=== PATIENT | female | born 1950 | race Caucasian/White ===

== ENCOUNTER 2017-02-28 23:02 | Inpatient (IN) | payer MEDICARE ==
[~2017-02-28] VITALS: Ht 152.4 cm; Wt 43.0 kg
[~2017-02-28 23:02] MED LIST: CITA20TA4 PO; FIORIC PO; GABA100C4 PO; ZOFR4TAB3 SL
[2017-02-28 23:16] VITALS: BP 134/63; PULSE 80; RESP 13; TEMP 98.4; O2SAT 94
[2017-03-01] VITALS (10 sets, daily range): BP systolic 112–148; BP diastolic 51–73; PULSE 68–88; RESP 12–20; TEMP 98.4–98.8; O2SAT 92–99
--- NOTE | 2017-03-01 00:01 | PD ---
HPI Chief Complaint: Injury Time Seen by Provider: 23:31 Travel History International Travel<30 days: No Contact w/Intl Traveler<30days: No Traveled to known affect area: No History of Present Illness HPI 67yo F was found by neighbor on her floor after she fell yesterday night. Neighbor said she lives with a roommate and does not know the relationship of the roommate but he was out of town. Pt does not remember why she fell and she was just walking. Said she crawled and was unable to get up. Denies any fever , chest pain, sob, n/v, abdominal pain, focal weakness or numbness. Pt is AAOx2 and neighbor said she seems a little out of it. Cant really describe it. PFSH Past Medical History Arthritis: Yes Diminished Hearing: No Immunizations Current: Yes Migraines: Yes (TAKES FIORICET) Ovarian Cysts: Yes (CYCST IN THE UTERUS ) Dilation and Curettage (D&C): Yes Past Surgical History Hysterectomy: Yes Mastectomy: Yes (BILATERAL ) Tonsillectomy: Yes Other Surgery: Yes (BLADDER LIFT) Social History Alcohol Use: No Tobacco Use: Yes (1 PPD ) Substance Use: No Allergies-Medications (Allergen,Severity, Reaction): Coded Allergies: aspirin (Unverified Adverse Reaction, Severe, gi bleed, 01/02/17) morphine (Unverified Adverse Reaction, Intermediate, hypotension , 01/02/17 ) Reported Meds & Prescriptions Reported Meds & Active Scripts Active Zofran ODT (Ondansetron HCl) 4 Mg Tab 4 Mg SL Q6H PRN FOR NAUSEA/VOMITING Fioricet Tab (Acetaminophen/Butalbital/Caffeine) 1 Tab 1 Tab PO Q6H PRN Reported Ibuprofen 800 Mg Tab 800 Mg PO TID PRN Zofran Odt (Ondansetron Odt) 4 Mg Tab 4 Mg SL Q8HR PRN Citalopram (Citalopram Hydrobromide) 40 Mg Tab 40 Mg PO DAILY Gabapentin 100 Mg Cap 100 Mg PO BID Trazodone (Trazodone HCl) 100 Mg Tablet 100 Mg PO HS Gabapentin 100 Mg Cap Unknown Dose PO HS Zofran ODT (Ondansetron HCl) 4 Mg Tab 4 Mg SL Q6H PRN FOR NAUSEA/VOMITING Fioricet Tab (Acetaminophen/Butalbital/Caffeine) 1 Tab Tab 1 Tab PO Q4H PRN Citalopram Hydrobromide 20 Mg Tab 10 Mg PO DAILY Review of Systems Except as stated in HPI: all other systems reviewed are Neg Physical Exam Narrative GENERAL: 67yo F in moderate distress. SKIN: Focused skin assessment warm/dry. HEAD: Atraumatic. Normocephalic. EYES: Pupils equal and round at 3mm bilaterally.. No scleral icterus. No injection or drainage. ENT: No nasal bleeding or discharge. Mucous membranes pink and moist. NECK: Trachea midline. No JVD. CARDIOVASCULAR: Regular rate and rhythm. No murmur appreciated. RESPIRATORY: No accessory muscle use. Clear to auscultation. Breath sounds equal bilaterally. GASTROINTESTINAL: Abdomen soft, non-tender, nondistended. MUSCULOSKELETAL: RLE: DP2+. +Deformity in right ankle. NEUROLOGICAL: Awake and alert. No obvious cranial nerve deficits. Motor grossly within normal limits. Normal speech. AAOx2. Data Data Last Documented VS Vital Signs Date Time Temp Pulse Resp B/P (MAP) Pulse Ox O2 Delivery O2 Flow Rate FiO2 03/01/17 04:47 16 03/01/17 04:30 73 138/65 (89) 97 Nasal Cannula 2.00 02/28/17 23:16 98.4 Orders Orders Tibia/Fibula (Ap/Lat) (02/28/17 ) Ct Brain W/O Iv Contrast(Rout) (02/28/17 ) Ct Cerv Spine W/O Contrast (02/28/17 ) Complete Blood Count With Diff (02/28/17 23:45) Prothrombin Time / Inr (Pt) (02/28/17 23:45) Act Partial Throm Time (Ptt) (02/28/17 23:45) Electrocardiogram (02/28/17 ) Troponin I (02/28/17 23:46) Creatine Kinase (Cpk) (02/28/17 23:46) Foot, Limited (2vws) (03/01/17 ) Splint Or Brace Apply/Monitor (03/01/17 01:00) Basic Metabolic Panel (Bmp) (03/01/17 00:55) CKMB (03/01/17 00:55) CKMB% (03/01/17 00:55) Sodium Chlor 0.9% 1000 Ml Inj (Ns 1000 M (03/01/17 02:45) Morphine Inj (Morphine Inj) (03/01/17 02:45) Admit To Inpatient (03/01/17 ) Vital Signs (Adult) Q4H (03/01/17 02:51) Activity Bed Rest (03/01/17 02:51) Insurance Office Manager / Telemetry .CONTINUOUS (03/01/17 02:51) Sodium Chlor 0.9% 1000 Ml Inj (Ns 1000 M (03/01/17 02:51) Sodium Chloride 0.9% Flush (Ns Flush) (03/01/17 03:00) Sodium Chloride 0.9% Flush (Ns Flush) (03/01/17 09:00) Ondansetron Inj (Zofran Inj) (03/01/17 03:00) Comprehensive Metabolic Panel (03/02/17 06:00) Complete Blood Count With Diff (03/02/17 06:00) Scd Bilateral/Knee High KAYCE.BID (03/01/17 02:51) Hydromorphone Pf Inj (Dilaudid Pf Inj) (03/01/17 03:00) Hydromorphone Pf Inj (Dilaudid Pf Inj) (03/01/17 03:00) Naloxone Inj (Narcan Inj) (03/01/17 03:00) Docusate Sodium-Senna (Lynne-Colace) (03/01/17 09:00) Magnesium Hydroxide Liq (Milk Of Magnesi (03/01/17 03:00) Inpatient Certification (03/01/17 ) Citalopram (Celexa) (03/01/17 09:00) Admit Order (Ed Use Only) (03/01/17 04:50) Labs Laboratory Tests Test 03/01/17 00:55 White Blood Count 7.8 TH/MM3 Red Blood Count 3.36 MIL/MM3 Hemoglobin 11.3 GM/DL Hematocrit 33.1 % Mean Corpuscular Volume 98.4 FL Mean Corpuscular Hemoglobin 33.5 PG Mean Corpuscular Hemoglobin Concent 34.0 % Red Cell Distribution Width 13.8 % Platelet Count 208 TH/MM3 Mean Platelet Volume 7.2 FL Neutrophils (%) (Auto) 66.2 % Lymphocytes (%) (Auto) 25.5 % Monocytes (%) (Auto) 7.3 % Eosinophils (%) (Auto) 0.1 % Basophils (%) (Auto) 0.9 % Neutrophils # (Auto) 5.1 TH/MM3 Lymphocytes # (Auto) 2.0 TH/MM3 Monocytes # (Auto) 0.6 TH/MM3 Eosinophils # (Auto) 0.0 TH/MM3 Basophils # (Auto) 0.1 TH/MM3 CBC Comment DIFF FINAL Differential Comment Prothrombin Time 11.3 SEC Prothromb Time International Ratio 1.0 RATIO Activated Partial Thromboplast Time 24.4 SEC Blood Urea Nitrogen 16 MG/DL Creatinine 0.80 MG/DL Random Glucose 91 MG/DL Calcium Level 7.8 MG/DL Sodium Level 143 MEQ/L Potassium Level 3.4 MEQ/L Chloride Level 113 MEQ/L Carbon Dioxide Level 23.1 MEQ/L Anion Gap 7 MEQ/L Estimat Glomerular Filtration Rate 71 ML/MIN Total Creatine Kinase 1046 U/L Creatine Kinase MB 8.0 NG/ML Creatine Kinase MB % 0.8 % Troponin I LESS THAN 0.02 NG/ML MDM Medical Decision Making Medical Screen Exam Complete: Yes Emergency Medical Condition: Yes Differential Diagnosis Fracture vs. dislocation vs. contusion vs. rhabdomyolysis vs. syncope Narrative Course 67yo F with right lower leg pain s/p fall over 24 hours ago. States she does not remember why she fell. She is AAOx2. Labs reviewed, no leukocytosis. Troponin negative. CPK elevated at 1046. Pt given NS IVF. Pt has morphine listed as allergy but states she had it before. Morphine 2mg IV given. Xray right foot negative. CT cspine showed no acute findings. CT brain negative. Xray right tib/fib showed spiral fracture. Right leg placed in splint. I discussed with Mr. Isaiah Black who lives with patient and is her career technical education teacher at [phone]. States he is currently in [place]. Pt also has a daughter Noni Serna who lives in [place] and her number is . Discussed with Dr. Enriquez and accepted to his service. Will need ortho consult and medical management. Diagnosis Primary Impression: Fracture of right tibia and fibula Qualified Codes: S82.201A - Unspecified fracture of shaft of right tibia, initial encounter for closed fracture; S82.401A - Unspecified fracture of shaft of right fibula, initial encounter for closed fracture Additional Impression: Rhabdomyolysis Qualified Codes: T79.6XXA - Traumatic ischemia of muscle, initial encounter Admitting Information Admitting Physician Requests: Admit Kayla Ghosh DO Mar 01, 2017 00:01
--- NOTE | 2017-03-01 00:44 | RADRPT ---
EXAM DATE/TIME: 03/01/2017 00:18 [facility] COMPARISON: No previous studies available for comparison. INDICATIONS : Trauma, fall. RADIATION DOSE: 56.35 CTDIvol (mGy) MEDICAL HISTORY : Carcinoma, breast. Migraines SURGICAL HISTORY : None. ENCOUNTER: Initial ACUITY: 1 day PAIN SCALE: 0/10 LOCATION: cranial TECHNIQUE: Multiple contiguous axial images were obtained of the head. Using automated exposure control and adj ustment of the mA and/or kV according to patient size, radiation dose was kept as low as reasonably a chievable to obtain optimal diagnostic quality images. DICOM format image data is available electro nically for review and comparison. FINDINGS: CEREBRUM: The ventricles are normal for age. No evidence of midline shift, mass lesion, hemorrhage or acute in farction. No extra-axial fluid collections are seen. POSTERIOR FOSSA: The cerebellum and brainstem are intact. The 4th ventricle is midline. The cerebellopontine angle i s unremarkable. EXTRACRANIAL: The visualized portion of the orbits is intact. SKULL: The calvaria is intact. No evidence of skull fracture. CONCLUSION: Normal examination for a patient of this age. No significant change has occurred. Philip Goldberg MD on March 01, 2017 at 0:38 Board Certified Radiologist. This report was verified electronically.
--- NOTE | 2017-03-01 00:45 | RADRPT ---
EXAM DATE/TIME: 03/01/2017 00:08 [facility] COMPARISON: No previous studies available for comparison. INDICATIONS : Pain due to fall. MEDICAL HISTORY : Carcinoma, breast. Migraines SURGICAL HISTORY : Mastectomy, bilateral. Hysterectomy.Bladder lift. ENCOUNTER: Initial ACUITY: 1 day PAIN SCORE: 7/10 LOCATION: Right foot FINDINGS: No acute fracture identified within the right foot. Bones are osteopenic. Incidentally noted fracture s of the right tibia and fibula. CONCLUSION: 1. No acute fracture within the right foot. There are fractures of the distal right tibia and fibula. Philip Goldberg MD on March 01, 2017 at 0:43 Board Certified Radiologist. This report was verified electronically.
--- NOTE | 2017-03-01 00:47 | RADRPT ---
EXAM DATE/TIME: 02/28/2017 23:51 [facility] COMPARISON: No previous studies available for comparison. INDICATIONS : Pain due to fall. MEDICAL HISTORY : Carcinoma, breast. Migraines. SURGICAL HISTORY : Mastectomy, bilateral. Hysterectomy.Bladder lift. ENCOUNTER: Initial ACUITY: 1 day PAIN SCORE: 7/10 LOCATION: Right tibia/fibula FINDINGS: There is a mildly displaced spiral fracture of the distal tibia and fibula. Is also a proximal fibula r fracture with mild displacement. No dislocation. CONCLUSION: 1. Spiral fracture distal tibia with mild displacement. Also mildly displaced fractures proximal and distal fibula. Philip Goldberg MD on March 01, 2017 at 0:45 Board Certified Radiologist. This report was verified electronically.
--- NOTE | 2017-03-01 00:49 | RADRPT ---
EXAM DATE/TIME: 03/01/2017 00:18 [facility] COMPARISON: No previous studies available for comparison. INDICATIONS : Trauma, fall. RADIATION DOSE: 37.10 CTDIvol (mGy) MEDICAL HISTORY : Carcinoma, breast. Migraines. SURGICAL HISTORY : None. ENCOUNTER: Initial ACUITY: 1 day PAIN SCALE: 0/10 LOCATION: neck TECHNIQUE: Volumetric scanning of the cervical spine was performed. Multiplanar reconstructions in the sagittal, coronal and oblique axial planes were performed. Using automated exposure control and adjustment o f the mA and/or kV according to patient size, radiation dose was kept as low as reasonably achievable to obtain optimal diagnostic quality images. DICOM format image data is available electronically f or review and comparison. FINDINGS: There is moderate degenerative disc disease and facet arthropathy. No acute fracture spondylolisthesi s. No significant canal stenosis. No prevertebral soft tissue swelling. CONCLUSION: 1. Moderate degenerative change. No acute findings. Philip Goldberg MD on March 01, 2017 at 0:46 Board Certified Radiologist. This report was verified electronically.
[2017-03-01 01:23] LABS: AUTOMATED NEUTROPHIL # 5.1 TH/MM3 (1.8-7.7); BASOPHIL # 0.1 TH/MM3 (0-0.2); BASOPHIL % 0.9 % (0.0-2.0); EOSINOPHIL % 0.1 % (0.0-4.0); HEMATOCRIT 33.1 % (35.0-46.0); HEMO FLAGS DIFF FINAL; LYMPH % 25.5 % (9.0-44.0); MEAN CELL VOLUME 98.4 FL (80.0-100.0); MEAN CORPUSCULAR HEMOGLOBIN 33.5 PG (27.0-34.0); MONO % 7.3 % (0.0-8.0); NEUT % 66.2 % (16.0-70.0); PLATELET COUNT 208 TH/MM3 (150-450); RED BLOOD COUNT 3.36 MIL/MM3 (4.00-5.30); RED CELL DISTRIBUTION WIDTH 13.8 % (11.6-17.2); WHITE BLOOD COUNT 7.8 TH/MM3 (4.0-11.0)
[2017-03-01 01:34] LABS: APTT (PATIENT) 24.4 SEC (24.3-30.1); PROTHROMBIN TIME - PATIENT 11.3 SEC (9.8-11.6)
[2017-03-01 01:48] LABS: ANION GAP 7 MEQ/L (5-15); BICARBONATE 23.1 MEQ/L (21.0-32.0); BLOOD UREA NITROGEN 16 MG/DL (7-18); CHLORIDE 113 MEQ/L (98-107); GLOMERULAR FILTRATION RATE 71 ML/MIN (>89); POTASSIUM 3.4 MEQ/L (3.5-5.1); SODIUM (NA) 143 MEQ/L (136-145)
[2017-03-01 02:02] LABS: CREATINE KINASE 1046 U/L (26-192)
[2017-03-01] MEDS ORDERED: MORPHINE SULFATE 2 MG/ML INJ IV PUSH ONE (02:45)
[2017-03-01] MEDS ORDERED: SODIUM CHLOR 0.9% 1000 ML INJ 1,000 ML IV ONE (02:45)
[2017-03-01] MEDS ORDERED: NALOXONE HCL 0.4 MG/ML AMP IV PUSH PRN (03:00)
[2017-03-01] MEDS ORDERED: MAGNESIUM HYDROXIDE SUSP 30 ML CUP PO PRN (03:00)
[2017-03-01] MEDS ORDERED: HYDROmorphone HCL PF 1 MG/ML VIAL IV PUSH PRN (03:00)
[2017-03-01] MEDS ORDERED: TRAZ100T6 PO (03:05)
[2017-03-01] MEDS ORDERED: ZOFR4TAB3 SL (03:05)
[2017-03-01] MEDS ORDERED: CITA40TA4 PO (03:05)
[2017-03-01] MEDS ORDERED: IBUP800T23 PO (03:05)
[2017-03-01] MEDS ORDERED: GABA100C4 PO (03:05)
[2017-03-01] MEDS: SODIUM CHLOR 0.9% 1000 ML INJ 1,000 ML IV SCH ×3 (04:15→20:24)
[2017-03-01] MEDS: SODIUM CHLORIDE 0.9% FLUSH 10 ML FLUSH IV FLUSH PRN (04:16)
--- NOTE | 2017-03-01 04:54 | HHI.HP ---
[facility] Service [facility] Primary Care Physician Moris Kiser M.D. Admission Diagnosis Diagnoses: (1) Fracture of right tibia and fibula Diagnosis: Principal (2) Rhabdomyolysis Diagnosis: Principal Travel History International Travel<30 Days: No Contact w/Intl Traveler <30 Da: No Traveled to Known Affected Are: No History of Present Illness Mrs. Serna is a 67-year-old female. She tripped and fell at home. This has resulted in a spiral fracture of her right tibia-fibula fibula. She also has some rhabdomyolysis. She was found on the floor. She may have been on the floor about 24 hours. No other complaints. When seeing her pain is well- controlled. She has a prior fall with a right humerus fracture. Review of Systems Constitutional: DENIES: Fatigue, Fever, Chills, Night Sweats Eyes: DENIES: Blurred vision, Diplopia, Eye inflammation, Eye pain Ears, nose, mouth, throat: DENIES: Tinnitus, Hearing loss, Vertigo Respiratory: DENIES: Cough, Wheezing, Hemoptysis, Shortness of breath Cardiovascular: DENIES: Chest pain, Palpitations, Syncope Gastrointestinal: DENIES: Abdominal pain, Black stools, Bloody stools Musculoskeletal: COMPLAINS OF: Joint pain, Muscle aches, Stiffness, Joint Swelling Integumentary: DENIES: Abnormal pigmentation, Pruritus, Rash Hematologic/lymphatic: DENIES: Bruising, Lymphadenopathy Immunologic/allergic: DENIES: Eczema, Urticaria Neurologic: DENIES: Abnormal gait, Headache, Paresthesias Psychiatric: DENIES: Anxiety, Confusion, Hallucinations Past Family Social History Past Medical History Breast cancer Osteoarthritis Headache Ovarian cysts History of right humerus fracture Past Surgical History Bilateral mastectomy Hysterectomy Bladder surgery Tonsillectomy Reported Medications Reported Meds & Active Scripts Active Zofran ODT (Ondansetron HCl) 4 Mg Tab 4 Mg SL Q6H PRN FOR NAUSEA/VOMITING Fioricet Tab (Acetaminophen/Butalbital/Caffeine) 1 Tab 1 Tab PO Q6H PRN Reported Ibuprofen 800 Mg Tab 800 Mg PO TID PRN Zofran Odt (Ondansetron Odt) 4 Mg Tab 4 Mg SL Q8HR PRN Citalopram (Citalopram Hydrobromide) 40 Mg Tab 40 Mg PO DAILY Gabapentin 100 Mg Cap 100 Mg PO BID Trazodone (Trazodone HCl) 100 Mg Tablet 100 Mg PO HS Gabapentin 100 Mg Cap Unknown Dose PO HS Zofran ODT (Ondansetron HCl) 4 Mg Tab 4 Mg SL Q6H PRN FOR NAUSEA/VOMITING Fioricet Tab (Acetaminophen/Butalbital/Caffeine) 1 Tab Tab 1 Tab PO Q4H PRN Citalopram Hydrobromide 20 Mg Tab 10 Mg PO DAILY Allergies: Coded Allergies: aspirin (Unverified Adverse Reaction, Severe, gi bleed, 01/02/17) morphine (Unverified Adverse Reaction, Intermediate, hypotension , 01/02/17 ) Active Ordered Medications Administered Medications Medications (Trade) Dose Ordered Sig/[place] Route PRN Reason Start Time Stop Time Status Last Admin Dose Admin Sodium Chloride 1,000 ml @ 100 mls/hr Q10H IV 03/01/17 02:51 03/01/17 04:15 Sodium Chloride (NS Flush) 2 ml UNSCH PRN IV FLUSH FLUSH AFTER USING IV ACCESS 03/01/17 03:00 03/01/17 04:16 Hydromorphone HCl (Dilaudid Pf Inj) 0.5 mg Q3H PRN IV PUSH Pain 3-5; if unable to take PO 03/01/17 03:00 03/01/17 04:17 Family History Breast cancer in mother Parkinson's disease in father Social History 1ppd smoking habit No Alcohol abuse No illicit drug use Physical Exam Vital Signs Vital Signs Date Time Temp Pulse Resp B/P (MAP) Pulse Ox O2 Delivery O2 Flow Rate FiO2 03/01/17 02:00 76 20 125/60 (81) 96 Nasal Cannula 2.00 03/01/17 01:00 84 16 125/60 (81) 98 Nasal Cannula 2.00 02/28/17 23:20 94 Nasal Cannula 2.00 02/28/17 23:16 98.4 80 13 134/63 (86) 94 Physical Exam GENERAL: NAD, A&Ox3 HEAD: Normocephalic. NECK: Supple, trachea midline. No lymphadenopathy. EYES: No scleral icterus. No injection or drainage. CARDIOVASCULAR: Regular rate and rhythm without murmurs, gallops, or rubs. RESPIRATORY: Breath sounds equal bilaterally. No accessory muscle use. GASTROINTESTINAL: Abdomen soft, non-tender, nondistended. MUSCULOSKELETAL: No cyanosis, or edema. Right lower extremity bandaged/splinted SKIN: Warm and dry. NEURO: No focal neurological deficitis. Laboratory Laboratory Tests Test 03/01/17 00:55 White Blood Count 7.8 Red Blood Count 3.36 Hemoglobin 11.3 Hematocrit 33.1 Mean Corpuscular Volume 98.4 Mean Corpuscular Hemoglobin 33.5 Mean Corpuscular Hemoglobin Concent 34.0 Red Cell Distribution Width 13.8 Platelet Count 208 Mean Platelet Volume 7.2 Neutrophils (%) (Auto) 66.2 Lymphocytes (%) (Auto) 25.5 Monocytes (%) (Auto) 7.3 Eosinophils (%) (Auto) 0.1 Basophils (%) (Auto) 0.9 Neutrophils # (Auto) 5.1 Lymphocytes # (Auto) 2.0 Monocytes # (Auto) 0.6 Eosinophils # (Auto) 0.0 Basophils # (Auto) 0.1 CBC Comment DIFF FINAL Differential Comment Prothrombin Time 11.3 Prothromb Time International Ratio 1.0 Activated Partial Thromboplast Time 24.4 Blood Urea Nitrogen 16 Creatinine 0.80 Random Glucose 91 Calcium Level 7.8 Sodium Level 143 Potassium Level 3.4 Chloride Level 113 Carbon Dioxide Level 23.1 Anion Gap 7 Estimat Glomerular Filtration Rate 71 Total Creatine Kinase 1046 Creatine Kinase MB 8.0 Creatine Kinase MB % 0.8 Troponin I LESS THAN 0.02 Result Diagram: 03/01/17 0055 03/01/17 0055 Caprini VTE Risk Assessment Caprini VTE Risk Assessment: Mod/High Risk (score >= 2) Caprini Risk Assessment Model Point Value = 1 Point Value = 2 Point Value = 3 Point Value = 5 Age 41-60 Minor surgery BMI > 25 kg/m2 Swollen legs Varicose veins or History of unexplained or recurrent spontaneous Oral contraceptives or hormone replacement Sepsis (< 1 month) Serious lung disease, including pneumonia (< 1 month) Abnormal pulmonary function Acute myocardial infarction Congestive heart failure (< 1 month) History of inflammatory bowel disease Medical patient at bed rest Age 61-74 Arthroscopic surgery Major open surgery (> 45 min) Laparoscopic surgery (> 45 min) Malignancy Confined to bed (> 72 hours) Immobilizing plaster cast Central venous access Age >= 75 History of VTE Family history of VTE Factor V Leiden Prothrombin [id number] Lupus anticoagulant Anticardiolipin antibodies Elevated serum homocysteine Heparin-induced thrombocytopenia Other congenital or acquired thrombophilia Stroke (< 1 month) Elective arthroplasty Hip, pelvis, or leg fracture Acute spinal cord injury (< 1 month) Prophylaxis Regimen Total Risk Factor Score Risk Level Prophylaxis Regimen 0-1 Low Early ambulation 2 Moderate Order ONE of the following: *Sequential Compression Device (SCD) *Heparin 5000 units SQ BID 3-4 Higher Order ONE of the following medications: *Heparin 5000 units SQ TID *Enoxaparin/Lovenox 40 mg SQ daily (WT < 150 kg, CrCl > 30 mL/min) *Enoxaparin/Lovenox 30 mg SQ daily (WT < 150 kg, CrCl > 10-29 mL/min) *Enoxaparin/Lovenox 30 mg SQ BID (WT < 150 kg, CrCl > 30 mL/min) AND/OR *Sequential Compression Device (SCD) 5 or more Highest Order ONE of the following medications: *Heparin 5000 units SQ TID (Preferred with Epidurals) *Enoxaparin/Lovenox 40 mg SQ daily (WT < 150 kg, CrCl > 30 mL/min) *Enoxaparin/Lovenox 30 mg SQ daily (WT < 150 kg, CrCl > 10-29 mL/min) *Enoxaparin/Lovenox 30 mg SQ BID (WT < 150 kg, CrCl > 30 mL/min) AND *Sequential Compression Device (SCD) Assessment and Plan Problem List: (1) Fracture of right tibia and fibula ICD Code: S82.201A - Unspecified fracture of shaft of right tibia, initial encounter for closed fracture; S82.401A - Unspecified fracture of shaft of right fibula, initial encounter for closed fracture (2) Rhabdomyolysis ICD Code: M62.82 - Rhabdomyolysis Assessment and Plan Assessment and plan 67-year-old female admitted secondary to right tib-fib fracture status post fall Right tib-fib fracture Spiral fracture Consult orthopedics Continue as needed pain treatments IV hydration Nothing by mouth Plan for PT after repair Patient may need usp facility at discharge Nicotine Abuse Patient declines NicoDerm DVT Prophylaxis SCDs pre-op Anticoagulation post op Physician Certification 2 Midnight Certification Type: Admission for Inpatient Services Order for Inpatient Services The services are ordered in accordance with Medicare regulations or non- Medicare payer requirements, as applicable. In the case of services not specified as inpatient-only, they are appropriately provided as inpatient services in accordance with the 2-midnight benchmark. Estimated LOS (days): 3 days is the estimated time the patient will need to remain in the hospital, assuming treatment plan goals are met and no additional complications. Post-Hospital Plan: Home Isaias Enriquez MD Mar 01, 2017 04:54
[2017-03-01] MEDS: ONDANSETRON HCL 4 MG/2 ML VIAL IVP PRN ×2 (05:13→16:07)
[2017-03-01] MEDS: CITALOPRAM HYDROBROMIDE 20 MG TAB PO SCH (08:26)
[2017-03-01] MEDS: DOCUSATE SODIUM 50 MG/SENNA 8.6 MG TAB PO SCH ×2 (08:26→20:21)
[2017-03-01] MEDS: SODIUM CHLORIDE 0.9% FLUSH 10 ML FLUSH IV FLUSH SCH ×2 (08:26→20:24)
[2017-03-01] MEDS: HYDROmorphone HCL PF 1 MG/ML VIAL IV PUSH PRN ×2 (08:30→19:19)
--- NOTE | 2017-03-01 09:07 | EKG ---
Date Performed: 03/01/2017 Time Performed: 01:22:13 PTAGE: 67 years EKG: Sinus rhythm LOW QRS VOLTAGE IN PRECORDIAL LEADS NONSPECIFIC T-WAVE ABNORMALITY BORDERLINE ECG PREVIOUS TRACING : 09/28/2015 11.10 Compared to previous tracing, anterior T wave inversion has improved. DOCTOR: Tim Almaraz Interpretating Date/Time 03/01/2017 09:06:33
[2017-03-01] MEDS: ACETAMIN 325 MG/BUTALBITAL 50 MG/CAFFEINE 40 MG TAB PO PRN (16:07)
[2017-03-02] VITALS (7 sets, daily range): BP systolic 112–150; BP diastolic 52–66; PULSE 57–90; RESP 17; TEMP 96.7–98.6; O2SAT 98–100
[2017-03-02] MEDS: HYDROmorphone HCL PF 1 MG/ML VIAL IV PUSH PRN ×5 (00:40→22:41)
[2017-03-02] MEDS ORDERED: INSULIN HUMAN REGULAR 1,000 UNITS/10 ML VIAL SQ PRN (02:45)
[2017-03-02] MEDS ORDERED: LACTATED RINGER'S 1000 ML IV PRN (02:45)
[2017-03-02] MEDS ORDERED: POVIDONE IODINE 5% (ANTISEPSIS KIT) 4 APPLICATIONS EACH NARE PRN (02:45)
[2017-03-02] MEDS ORDERED: CHLORHEXIDINE GLUCONATE 2 % 1 PACK (2 CLOTHS) TOPICAL PRN (02:45)
[2017-03-02] MEDS ORDERED: SODIUM CHLORID 0.9% 500 ML IV PRN (02:45)
[2017-03-02 06:43] LABS: AUTOMATED NEUTROPHIL # 6.1 TH/MM3 (1.8-7.7); BASOPHIL % 0.6 % (0.0-2.0); EOSINOPHIL % 0.1 % (0.0-4.0); HEMATOCRIT 33.2 % (35.0-46.0); HEMO FLAGS DIFF FINAL; LYMPH % 11.3 % (9.0-44.0); LYMPHOCYTE # 0.9 TH/MM3 (1.0-4.8); MEAN CELL VOLUME 100.3 FL (80.0-100.0); MEAN CORPUSCULAR HEMOGLOBIN 32.8 PG (27.0-34.0); MEAN CORPUSCULAR HGB CONC 32.7 % (32.0-36.0); MONO % 9.2 % (0.0-8.0); NEUT % 78.8 % (16.0-70.0); PLATELET COUNT 196 TH/MM3 (150-450); RED BLOOD COUNT 3.31 MIL/MM3 (4.00-5.30); RED CELL DISTRIBUTION WIDTH 14.5 % (11.6-17.2); WHITE BLOOD COUNT 7.7 TH/MM3 (4.0-11.0)
[2017-03-02 07:14] LABS: ANION GAP 12 MEQ/L (5-15); AST (GOT) 79 U/L (15-37); BICARBONATE 19.7 MEQ/L (21.0-32.0); BLOOD UREA NITROGEN 12 MG/DL (7-18); CHLORIDE 109 MEQ/L (98-107); GLOMERULAR FILTRATION RATE 87 ML/MIN (>89); SODIUM (NA) 141 MEQ/L (136-145)
[2017-03-02 07:17] LABS: ALKALINE PHOSPHATASE 95 U/L (45-117); ALT (GPT) 33 U/L (10-53); TOTAL BILIRUBIN ADULT 0.3 MG/DL (0.2-1.0)
[2017-03-02] MEDS ORDERED: ceFAZolin INJ 1,000 MG VIAL ONE (08:03)
[2017-03-02] MEDS ORDERED: GENTAMICIN SULFATE 80 MG/2 ML VIAL ONE (08:04)
[2017-03-02] MEDS: SODIUM CHLOR 0.9% 1000 ML INJ 1,000 ML IV SCH ×2 (08:51→22:05)
[2017-03-02] MEDS: CITALOPRAM HYDROBROMIDE 20 MG TAB PO SCH (09:00)
[2017-03-02] MEDS: DOCUSATE SODIUM 50 MG/SENNA 8.6 MG TAB PO SCH ×3 (09:00→19:40)
[2017-03-02] MEDS: SODIUM CHLORIDE 0.9% FLUSH 10 ML FLUSH IV FLUSH SCH ×3 (09:40→19:40)
[2017-03-02] MEDS ORDERED: PERC5TAB12 PO (09:59)
[2017-03-02] MEDS ORDERED: ACETAMINOPHEN 1000 MG/100 ML 100 ML IV ONE (10:13)
[2017-03-02] MEDS ORDERED: METOCLOPRAMIDE HCL 10 MG/2 ML VIAL ONE (10:14)
[2017-03-02] MEDS ORDERED: VANCOMYCIN HCL 1000 MG VIAL ONE (11:02)
--- NOTE | 2017-03-02 12:28 | RADRPT ---
EXAM DATE/TIME: 03/02/2017 12:00 [facility] COMPARISON: TIBIA/FIBULA RIGHT (AP/LAT), February 28, 2017, 23:51. INDICATIONS : Open reduction internal fixation of the right tibia. MEDICAL HISTORY : None. SURGICAL HISTORY : None. ENCOUNTER: Subsequent ACUITY: 2 days PAIN SCORE: Non-responsive. LOCATION: Right tibia. FINDINGS: Status post internal fixation of the tibia. There is good position and alignment of the intramedullar y joseph. There is good position of the fracture fragments. CONCLUSION: Good position and alignment on this postoperative study. Leo Vallejo MD on March 02, 2017 at 12:25 Board Certified Radiologist. This report was verified electronically.
[2017-03-02] MEDS ORDERED: DO NOT ADM ANY ANTICOAGULANT DRUGS PRN (12:36)
[2017-03-02] MEDS ORDERED: *MEPERIDINE 25 MG INJ VIAL PERIprocedural Use ONLY ONE (12:49)
[2017-03-02] MEDS ORDERED: *HYDROmorphone PF 1 MG VIAL PERIprocedural Use ONLY ONE (13:00)
[2017-03-02] MEDS ORDERED: *diphenhydrAMINE HCL 50 MG/ML VIAL PERIprocedural Use ONLY ONE (13:07)
[2017-03-02] MEDS ORDERED: MORPHINE SULFATE 8 MG/ML INJ IV PUSH PRN (13:30)
[2017-03-02] MEDS ORDERED: SODIUM CHLORIDE 0.9% FLUSH 10 ML FLUSH IV FLUSH PRN (13:30)
[2017-03-02] MEDS ORDERED: LACTULOSE SYRUP 20 GM/30 ML CUP PO PRN (13:30)
[2017-03-02] MEDS ORDERED: SENNOSIDES 8.6 MG TAB PO PRN (13:30)
[2017-03-02] MEDS ORDERED: Post-op Orders (for Pharmacy) MISC XX ONE (13:30)
[2017-03-02] MEDS ORDERED: ZOLPIDEM TARTRATE 5 MG TAB PO PRN (13:30)
[2017-03-02] MEDS ORDERED: BISACODYL 10 MG SUPP RECTAL PRN (13:30)
[2017-03-02] MEDS ORDERED: PROMETHAZINE HCL 25 MG TAB PO PRN (13:30)
--- NOTE | 2017-03-02 13:30 | PD.CONS ---
cc: Roni Garsia Jr., MD HPI Service Orthopedic Surgeons Consult Requested By Primary Care Physician Moris Kiser M.D. Admission Diagnosis Diagnoses: (1) Fracture of right tibia and fibula (2) Rhabdomyolysis Chief Complaint: right tibia fracture History of Present Illness 67yo female relatively healthy was found on the floor by her neighbor after a fall yesterday. Patient does not have any recollection of the fall. Said she crawled and was unable to get up. Denies any fever, chest pain, sob, n/v, abdominal pain, focal weakness or numbness. Pt is AAOx2 and neighbor said she seems a little out of it.She presented to the emergency department complaining of RIGHT leg pain and inability to bear weight. Pain is 8 out 10, exacerbated by range of motion and weightbearing, relieved with rest, also relieved by pain medicine, pain is sharp and nonradiating and not associated with numbness or paresthesia in the RIGHT lower extremity. History PFSH Past Medical History Arthritis: Yes Diminished Hearing: No Immunizations Current: Yes Migraines: Yes (TAKES FIORICET) Ovarian Cysts: Yes (CYCST IN THE UTERUS ) Dilation and Curettage (D&C): Yes Past Surgical History Hysterectomy: Yes Mastectomy: Yes (BILATERAL ) Tonsillectomy: Yes Other Surgery: Yes (BLADDER LIFT) Social History Alcohol Use: No Tobacco Use: Yes (1 PPD ) Substance Use: No Allergies-Medications Allergies-Medications (Allergen,Severity, Reaction): Coded Allergies: aspirin (Unverified Adverse Reaction, Severe, gi bleed, 01/02/17) morphine (Unverified Adverse Reaction, Intermediate, hypotension , 01/02/17 ) Reported Meds & Prescriptions Reported Meds & Active Scripts Active Zofran ODT (Ondansetron HCl) 4 Mg Tab 4 Mg SL Q6H PRN FOR NAUSEA/VOMITING Fioricet Tab (Acetaminophen/Butalbital/Caffeine) 1 Tab 1 Tab PO Q6H PRN Reported Ibuprofen 800 Mg Tab 800 Mg PO TID PRN Zofran Odt (Ondansetron Odt) 4 Mg Tab 4 Mg SL Q8HR PRN Citalopram (Citalopram Hydrobromide) 40 Mg Tab 40 Mg PO DAILY Gabapentin 100 Mg Cap 100 Mg PO BID Trazodone (Trazodone HCl) 100 Mg Tablet 100 Mg PO HS Gabapentin 100 Mg Cap Unknown Dose PO HS Zofran ODT (Ondansetron HCl) 4 Mg Tab 4 Mg SL Q6H PRN FOR NAUSEA/VOMITING Fioricet Tab (Acetaminophen/Butalbital/Caffeine) 1 Tab Tab 1 Tab PO Q4H PRN Citalopram Hydrobromide 20 Mg Tab 10 Mg PO DAILY ROS Review of Systems Except as stated in HPI: all other systems reviewed are Neg Past Family Social History Past Medical History Breast cancer Osteoarthritis Headache Ovarian cysts History of right humerus fracture Past Surgical History Bilateral mastectomy Hysterectomy Bladder surgery Tonsillectomy Allergies: Coded Allergies: aspirin (Unverified Adverse Reaction, Severe, gi bleed, 01/02/17) morphine (Unverified Adverse Reaction, Intermediate, hypotension , 01/02/17 ) Active Ordered Medications Current Medications Medications (Trade) Dose Ordered Sig/[place] Route Start Time Stop Time Status Last Admin Sodium Chloride 1,000 ml @ 100 mls/hr Q10H IV 03/01/17 02:51 03/01/17 20:24 (NS Flush) 2 ml UNSCH PRN IV FLUSH 03/01/17 03:00 03/01/17 04:16 (NS Flush) 2 ml BID IV FLUSH 03/01/17 09:00 03/02/17 09:40 (Zofran Inj) 4 mg Q6H PRN IVP 03/01/17 03:00 03/01/17 16:07 (Dilaudid Pf Inj) 0.5 mg Q3H PRN IV PUSH 03/01/17 03:00 03/01/17 04:17 (Dilaudid Pf Inj) 1 mg Q3H PRN IV PUSH 03/01/17 03:00 03/02/17 06:23 (Narcan Inj) 0.4 mg UNSCH PRN IV PUSH 03/01/17 03:00 (Lynne-Colace) 1 tab BID PO 03/01/17 09:00 03/01/17 20:21 (Milk Of Magnesia Liq) 30 ml Q12H PRN PO 03/01/17 03:00 (CeleXA) 10 mg DAILY PO 03/01/17 09:00 03/01/17 08:26 (Fioricet 325-50-40) 1 tab Q4H PRN PO 03/01/17 15:30 03/01/17 16:07 Lactated Ringer's 1,000 ml @ 30 mls/hr Q24H PRN IV 03/02/17 02:45 03/05/17 02:44 Sodium Chloride 500 ml @ 30 mls/hr [id number] PRN IV 03/02/17 02:45 03/05/17 02:44 (Betadine 5% Antisepsis Kit) 1 applic PRODUCT DEMONSTRATOR PRN EACH NARE 03/02/17 02:45 03/05/17 02:44 (Chlorhexidine 2% Cloth) 3 pack PRODUCT DEMONSTRATOR PRN TOPICAL 03/02/17 02:45 03/05/17 02:44 (NovoLIN R INJ) See Protocol Table ... PRODUCT DEMONSTRATOR PRN SQ 03/02/17 02:45 03/05/17 02:44 Miscellaneous Information ALL NURSING DEPARTME... UNSCH PRN .XX 03/02/17 12:36 03/03/17 12:35 Reported Meds & Active Scripts Active Percocet (Oxycodone-Acetaminophen) 5-325 mg Tab 1 Tab PO Q4H PRN Zofran ODT (Ondansetron HCl) 4 Mg Tab 4 Mg SL Q6H PRN FOR NAUSEA/VOMITING Fioricet Tab (Acetaminophen/Butalbital/Caffeine) 1 Tab 1 Tab PO Q6H PRN Reported Ibuprofen 800 Mg Tab 800 Mg PO TID PRN Zofran Odt (Ondansetron Odt) 4 Mg Tab 4 Mg SL Q8HR PRN Citalopram (Citalopram Hydrobromide) 40 Mg Tab 40 Mg PO DAILY Gabapentin 100 Mg Cap 100 Mg PO BID Trazodone (Trazodone HCl) 100 Mg Tablet 100 Mg PO HS Gabapentin 100 Mg Cap Unknown Dose PO HS Zofran ODT (Ondansetron HCl) 4 Mg Tab 4 Mg SL Q6H PRN FOR NAUSEA/VOMITING Fioricet Tab (Acetaminophen/Butalbital/Caffeine) 1 Tab Tab 1 Tab PO Q4H PRN Citalopram Hydrobromide 20 Mg Tab 10 Mg PO DAILY Family History Breast cancer in mother Parkinson's disease in father Social History 1ppd smoking habit No Alcohol abuse No illicit drug use Physical Exam Vital Signs Vital Signs Date Time Temp Pulse Resp B/P (MAP) Pulse Ox O2 Delivery O2 Flow Rate FiO2 03/02/17 13:15 79 12 113/58 (76) 93 Nasal Cannula 3 03/02/17 13:00 84 24 113/58 (76) 95 Nasal Cannula 3 03/02/17 12:45 92 18 125/58 (80) 95 Nasal Cannula 3 03/02/17 12:36 97.7 92 22 116/56 (76) 92 Nasal Cannula 3 03/02/17 08:00 97.9 82 17 140/66 (90) 98 03/02/17 04:10 97.9 83 17 141/66 (91) 100 03/02/17 00:25 98.6 87 17 140/66 (90) 99 03/01/17 20:21 98.6 86 17 145/73 (97) 99 03/01/17 14:32 98.8 87 17 143/65 (91) 98 Physical Exam AAOx3. No acute distress. Head: NC/AT Neck: No pain with any range of motion and neck. No tenderness to palpation along posterior cervical elements. Negative Spurling. Pulmonary: Normal respiratory effort. Bilateral upper extremity: no deformity. Grossly nvi distally in median, ulnar , and radial nerve. Intact motor in anterior interosseous, posterior interosseous, and ulnar nerve. 2+ radial artery pulses. Good cap refill. RIGHT lower extremity: Mild to shaft deformity. Swelling and ecchymosis. Grossly Neurovascularly intact, +EHL/FHL. + PT/DP pulses. Supple compartments. Negative Homans sign. LEFT lower extremity: Neurovascularly intact, +EHL/FHL, dry and intact. + PT/DP pulses. Supple compartments. Negative Homans sign. Laboratory Laboratory Tests Test 03/02/17 06:12 White Blood Count 7.7 Red Blood Count 3.31 Hemoglobin 10.9 Hematocrit 33.2 Mean Corpuscular Volume 100.3 Mean Corpuscular Hemoglobin 32.8 Mean Corpuscular Hemoglobin Concent 32.7 Red Cell Distribution Width 14.5 Platelet Count 196 Mean Platelet Volume 7.1 Neutrophils (%) (Auto) 78.8 Lymphocytes (%) (Auto) 11.3 Monocytes (%) (Auto) 9.2 Eosinophils (%) (Auto) 0.1 Basophils (%) (Auto) 0.6 Neutrophils # (Auto) 6.1 Lymphocytes # (Auto) 0.9 Monocytes # (Auto) 0.7 Eosinophils # (Auto) 0.0 Basophils # (Auto) 0.0 CBC Comment DIFF FINAL Differential Comment Blood Urea Nitrogen 12 Creatinine 0.67 Random Glucose 71 Total Protein 6.2 Albumin 3.2 Calcium Level 8.5 Alkaline Phosphatase 95 Aspartate Amino Transf (AST/SGOT) 79 Alanine Aminotransferase (ALT/SGPT) 33 Total Bilirubin 0.3 Sodium Level 141 Potassium Level 4.0 Chloride Level 109 Carbon Dioxide Level 19.7 Anion Gap 12 Estimat Glomerular Filtration Rate 87 Result Diagram: 03/02/1712 03/02/17611 Imaging Last 72 hours Impressions Tibia/Fibula X-Ray 03/02/17 0000 Signed Impressions: Service Date/Time: Thursday, March 02, 2017 12:00 - CONCLUSION: Good position and alignment on this postoperative study. Leo Vallejo MD Foot X-Ray 03/01/17 0000 Signed Impressions: Service Date/Time: Wednesday, March 01, 2017 00:08 - CONCLUSION: 1. No acute fracture within the right foot. There are fractures of the distal right tibia and fibula. Philip Goldberg MD Assessment & Plan Assessment and Plan 67-year-old female Relatively healthy without any significant past medical history presents after a fall at home sustaining a RIGHT spiral closed tibia fracture. She is grossly neurovascularly intact. Soft tissue envelope is amenable to definitive fixation. I recommend intramedullary joseph fixation. Risks , benefits and alternatives discussed with the patient. All questions answered. OR Right tibia IMN Nothing by mouth. Roni Garsia Jr., MD Mar 02, 2017 13:29
--- NOTE | 2017-03-02 14:30 | HHI.PR ---
Subjective Remarks No new issues. Plan for or today. Objective Vitals Vital Signs Date Time Temp Pulse Resp B/P (MAP) Pulse Ox O2 Delivery O2 Flow Rate FiO2 03/02/17 13:45 97.5 64 17 112/52 (72) 98 03/02/17 13:15 79 12 113/58 (76) 93 Nasal Cannula 3 03/02/17 13:00 84 24 113/58 (76) 95 Nasal Cannula 3 03/02/17 12:45 92 18 125/58 (80) 95 Nasal Cannula 3 03/02/17 12:36 97.7 92 22 116/56 (76) 92 Nasal Cannula 3 03/02/17 08:00 97.9 82 17 140/66 (90) 98 03/02/17 04:10 97.9 83 17 141/66 (91) 100 03/02/17 00:25 98.6 87 17 140/66 (90) 99 03/01/17 20:21 98.6 86 17 145/73 (97) 99 03/01/17 14:32 98.8 87 17 143/65 (91) 98 I/O 03/01/17 03/01/17 03/01/17 03/02/17 03/02/17 03/02/17 07:00 15:00 23:00 07:00 15:00 23:00 Intake Total 0 ml 240 ml 981 ml 1500 ml Output Total 50 ml Balance 0 ml 240 ml 981 ml 1450 ml Intake Oral 0 ml 240 ml 0 ml IV Total 981 ml Other 1500 ml Output Other 50 ml # Voids 3 2 2 # Bowel Movements 0 0 0 Result Diagram: 03/02/1761103/02/17611 Objective Remarks GENERAL: This is a well-nourished, well-developed patient, in no apparent distress. CARDIOVASCULAR: Normal rate and regular rhythm without murmurs, gallops, or rubs. RESPIRATORY: Good respiratory efforts. Breath sounds equal and clear to auscultation bilaterally. GASTROINTESTINAL: Abdomen soft, non-tender, non-distended. Normal active bowel sounds MUSCULOSKELETAL: Right lower extremity splinted NEURO: Alert & Oriented x4 to person, place, time, situation. PSYCH: Appropriate mood and affect. A/P Problem List: (1) Fracture of right tibia and fibula ICD Code: S82.201A - Unspecified fracture of shaft of right tibia, initial encounter for closed fracture; S82.401A - Unspecified fracture of shaft of right fibula, initial encounter for closed fracture (2) Rhabdomyolysis ICD Code: M62.82 - Rhabdomyolysis Assessment and Plan 67-year-old female admitted secondary to right tib-fib fracture status post fall Right tib-fib fracture Spiral fracture Orthopedics planning for repair today. Continue as needed pain treatments IV hydration Nothing by mouth Plan for PT after repair Patient may need halfway facility at discharge Nicotine Abuse Patient declines NicoDerm DVT Prophylaxis SCDs pre-op Anticoagulation post op per orthopedics. Colton Clark MD Mar 02, 2017 14:29
[2017-03-02] MEDS: KETOROLAC TROMETHAMINE 30 MG/ML (IVP) VIAL IVP SCH (19:39)
[2017-03-03] VITALS (15 sets, daily range): BP systolic 131–158; BP diastolic 62–85; PULSE 59–94; RESP 12–22; TEMP 95.9–98.6; O2SAT 92–99
--- NOTE | 2017-03-03 00:04 | PD.OP ---
cc: Roni Garsia Jr., MD Operative Report Date of Surgery: Mar 02, 2017 Preoperative Diagnosis: RIGHT closed spiral tibial shaft fracture Postoperative Diagnosis: Same Procedure: RIGHT tibia intramedullary joseph fixation Anesthesia: General Surgeon: Roni Garsia Auto Radiator Specialist(s): Staff Resident Surgeon: None Operation and Findings: The patient received intravenous ancef. After the appropriate anesthesia was administered, the patient was prepped and draped in the supine position in the usual sterile fashion. Skin assessment showed soft compartments. There was minimal swelling noted to the leg. We made incision proximal to the patella. We carefully dissected down to the quadriceps tendon. An in-line longitudinal split to the quadriceps tendon was completed. The capsule of the knee was entered. We placed the smooth trocar within the knee joint down to the proximal tibia, protecting the patella and trochlea during the case. We then reduced the tibia fracture manually under fluoroscopic imaging. A ball- tipped guidewire was placed into the tibial shaft, passing the fracture site. This was placed down to the distal physeal line of the tibia. We then sequentially reamed the tibia to 1 mm larger than the implanted tibial nail. We obtained good cortical chatter. We measured the appropriate length for the tibial nail. We then passed the tibial nail into the medullary canal of the tibia. The nail was secured proximally with 2 screw(s), using the associated jig as a guide. We used the perfect yuhaaviatam technique to visualize the distal tibial screws. The nail was secured distally with 3 screw(s). We had good reduction of the fracture with acceptable alignment in the AP and lateral planes and to rotation. We thoroughly irrigated the incisions including a lavage of the arthrotomy site proximally. The quadriceps split was closed with a #1 Vicryl. The remaining incisions were closed with #2-0 Vicryl, followed by lionel. Sterile dressing applied. IMPLANTS USED Synthes tibal nail, size: 11 mm POSTP-OP PLAN OF ACTIVITY Antibiotics: Ancef Antiocoagulation: Lovenox Weight bearing status: NWB Dressing: Change daily, by RN starting postop day 2 Dispo: expected discharge 1-2 days when okay with primary Roni Garsia Jr., MD Mar 03, 2017 00:04
[2017-03-03] MEDS: KETOROLAC TROMETHAMINE 30 MG/ML (IVP) VIAL IVP SCH ×4 (01:18→19:30)
[2017-03-03] MEDS: ONDANSETRON HCL 4 MG/2 ML VIAL IVP PRN (01:18)
[2017-03-03] MEDS: ACETAMIN 325 MG/BUTALBITAL 50 MG/CAFFEINE 40 MG TAB PO PRN ×2 (01:58→10:20)
[2017-03-03] MEDS: SODIUM CHLOR 0.9% 1000 ML INJ 1,000 ML IV SCH ×2 (04:51→14:51)
[2017-03-03] MEDS: oxyCODONE/ACETAMINOPHEN 5 MG/325 MG TAB PO PRN ×2 (04:55→18:52)
[2017-03-03] MEDS: DOCUSATE SODIUM 50 MG/SENNA 8.6 MG TAB PO SCH ×4 (08:18→21:00)
[2017-03-03] MEDS: CITALOPRAM HYDROBROMIDE 20 MG TAB PO SCH (08:18)
[2017-03-03] MEDS: SODIUM CHLORIDE 0.9% FLUSH 10 ML FLUSH IV FLUSH SCH ×2 (08:18)
--- NOTE | 2017-03-03 10:07 | HHI.PR ---
Subjective Remarks Patient seen sitting in the chair. She reports some nausea and vomiting overnight related to the pain medications. Improved this morning. Objective Vitals Vital Signs Date Time Temp Pulse Resp B/P (MAP) Pulse Ox O2 Delivery O2 Flow Rate FiO2 03/03/17 09:00 98.6 74 12 131/62 (85) 92 03/03/17 04:10 97.8 91 17 152/70 (97) 98 03/03/17 00:12 98.0 80 17 143/68 (93) 98 03/02/17 20:20 98.3 88 17 150/63 (92) 99 03/02/17 20:00 75 03/02/17 16:00 96.7 90 17 135/62 (86) 100 03/02/17 13:45 97.5 64 17 112/52 (72) 98 03/02/17 13:15 79 12 113/58 (76) 93 Nasal Cannula 3 03/02/17 13:00 84 24 113/58 (76) 95 Nasal Cannula 3 03/02/17 12:45 92 18 125/58 (80) 95 Nasal Cannula 3 03/02/17 12:36 97.7 92 22 116/56 (76) 92 Nasal Cannula 3 I/O 03/02/17 03/02/17 03/02/17 03/03/17 03/03/17 03/03/17 07:00 15:00 23:00 07:00 15:00 23:00 Intake Total 981 ml 1500 ml 560 ml 698 ml Output Total 50 ml Balance 981 ml 1450 ml 560 ml 698 ml Intake Oral 0 ml 360 ml 240 ml IV Total 981 ml 200 ml 458 ml Other 1500 ml Output Other 50 ml # Voids 2 5 6 # Bowel Movements 0 0 0 Result Diagram: 03/02/1761103/02/17611 Objective Remarks GENERAL: This is a well-nourished, well-developed patient, in no apparent distress. CARDIOVASCULAR: Normal rate and regular rhythm without murmurs, gallops, or rubs. RESPIRATORY: Good respiratory efforts. Breath sounds equal and clear to auscultation bilaterally. GASTROINTESTINAL: Abdomen soft, non-tender, non-distended. Normal active bowel sounds MUSCULOSKELETAL: Right lower extremity splinted NEURO: Alert & Oriented x4 to person, place, time, situation. PSYCH: Appropriate mood and affect. A/P Problem List: (1) Fracture of right tibia and fibula ICD Code: S82.201A - Unspecified fracture of shaft of right tibia, initial encounter for closed fracture; S82.401A - Unspecified fracture of shaft of right fibula, initial encounter for closed fracture (2) Rhabdomyolysis ICD Code: M62.82 - Rhabdomyolysis Assessment and Plan 67-year-old female admitted secondary to right tib-fib fracture status post fall Right tib-fib fracture Spiral fracture Status post right tibia intramedullary joseph fixation. Continue as needed pain medications. Patient will try to use [place] rendered and IV morphine. PT Patient may need [facility]p facility at discharge Nicotine Abuse Patient declines NicoDerm DVT Prophylaxis Colton Vazquez MD Mar 03, 2017 10:07
[2017-03-03] MEDS: ENOXAPARIN SODIUM 30 MG/0.3 ML SYRINGE SQ SCH (11:43)
[2017-03-03] MEDS ORDERED: diphenhydrAMINE HCL 25 MG CAP PO PRN (13:00)
--- NOTE | 2017-03-03 14:38 | RADRPT ---
EXAM DATE/TIME: 03/03/2017 13:34 [facility] COMPARISON: CT BRAIN W/O CONTRAST, March 01, 2017, 0:18. INDICATIONS : Trauma; fall. RADIATION DOSE: 28.86 CTDIvol (mGy) MEDICAL HISTORY : Carcinoma, breast. Seizures. SURGICAL HISTORY : Mastectomy, bilateral. Hysterectomy.Tonsillectomy. ENCOUNTER: Initial ACUITY: 1 day PAIN SCALE: 5/10 LOCATION: cranial TECHNIQUE: Multiple contiguous axial images were obtained of the head. Using automated exposure control and adj ustment of the mA and/or kV according to patient size, radiation dose was kept as low as reasonably a chievable to obtain optimal diagnostic quality images. DICOM format image data is available electro nically for review and comparison. FINDINGS: CEREBRUM: The ventricles are normal for age. No evidence of midline shift, mass lesion, hemorrhage or acute in farction. No extra-axial fluid collections are seen. POSTERIOR FOSSA: The cerebellum and brainstem are intact. The 4th ventricle is midline. The cerebellopontine angle i s unremarkable. EXTRACRANIAL: The visualized portion of the orbits is intact. SKULL: The calvaria is intact. No evidence of skull fracture. CONCLUSION: 1. No evidence of acute intracranial pathology. No masses are identified. Mehdi Patterson MD on March 03, 2017 at 14:37 Board Certified Radiologist. This report was verified electronically.
--- NOTE | 2017-03-03 14:52 | RADRPT ---
EXAM DATE/TIME: 03/03/2017 13:34 [facility] COMPARISON: No previous studies available for comparison. INDICATIONS : Fall, swollen nose. RADIATION DOSE: 47.45 CTDIvol (mGy) MEDICAL HISTORY : Seizures. Carcinoma, breast. SURGICAL HISTORY : Hysterectomy. Tonsillectomy.Brendan mastectomy. ENCOUNTER: Initial ACUITY: 1 day PAIN SCORE: 8/10 LOCATION: facial TECHNIQUE: Volumetric scanning of the facial bones was performed. Using automated exposure control and adjustme nt of the mA and/or kV according to patient size, radiation dose was kept as low as reasonably achiev able to obtain optimal diagnostic quality images. DICOM format image data is available electronicall y for review and comparison. FINDINGS: ORBITS: The orbital and infraorbital osseous structures are intact. The retroconal structures have a normal configuration. No radiopaque foreign bodies are seen. NASAL BONE: Is a nondisplaced fracture the nasal septum. The nasal bones are intact. Kamila bullosa are present b ilaterally. ZYGOMATIC ARCHES: Symmetric without evidence of fracture. SINUSES: The maxillary, ethmoid and frontal sinuses are intact. No air-fluid levels seen. NASAL CAVITY: The nasal septum is intact and midline. The lacrimal ducts are intact. SOFT TISSUES: No radiopaque foreign bodies seen. No soft-tissue swelling is seen. INTRACRANIAL: No intracranial air seen. CRIBIFORM PLATE: Grossly intact. CONCLUSION: 1. Nondisplaced fracture the nasal septum Mehdi Patterson MD on March 03, 2017 at 14:47 Board Certified Radiologist. This report was verified electronically.
[2017-03-03] MEDS: SODIUM CHLORIDE 0.9% FLUSH 10 ML FLUSH IV FLUSH PRN (15:16)
--- NOTE | 2017-03-03 15:31 | RADRPT ---
EXAM DATE/TIME: 03/03/2017 13:43 [facility] COMPARISON: TIBIA/FIBULA RIGHT (AP/LAT), March 02, 2017, 12:00. INDICATIONS : Right leg pain post fall MEDICAL HISTORY : Carcinoma, breast. Miagranes SURGICAL HISTORY : Tibial joseph Right leg ENCOUNTER: Subsequent ACUITY: 4 - 6 days PAIN SCORE: 7/10 LOCATION: Right tibia FINDINGS: There are postsurgical changes with operative reduction and internal fixation of the previously seen fracture. The alignment is anatomic. CONCLUSION: Postsurgical changes as above. Mehdi Patterson MD on March 03, 2017 at 15:29 Board Certified Radiologist. This report was verified electronically.
--- NOTE | 2017-03-03 22:30 | MB ---
cc: RICARDO REYES MD DATE OF CONSULTATION 03/03/2017 CHIEF COMPLAINT Nasal fracture. HISTORY OF THE PRESENT ILLNESS The patient is a pleasant female who was admitted for trauma and over the last 24 hours fell on hit her nose. there is concern for nasal fracture. CT scan was consistent with a nondisplaced nasal septal fracture. I was asked to evaluate. On examination the patient is a pleasant patient with external nasal edema. She is very pleasant and otherwise alert and oriented. Nasal examination revealed no step off deformity. A nasopharyngeal scope that was performed revealed that the airway was patent. There was a large amount of dried blood on the left side of the nasal cavity. However, palpation of the septum of the nose revealed no septal hematoma. Thus the assessment is nondisplaced nasal fracture. However, the patient is currently on Lovenox blood thinners because of her recent The patient is currently on Lovenox blood thinners because of her recent leg trauma. She is at risk for a septal hematoma. Because of this, I recommend the patient follow up with ENT in 1-2 weeks to recheck the patient's nose and ensure no septal hematoma develops. Thank you for this consultation. Ricardo Reyes MD CCP/KK /9:22 PM /10:16 PM
[2017-03-04] VITALS (9 sets, daily range): BP systolic 127–158; BP diastolic 66–88; PULSE 67–101; RESP 16–22; TEMP 96.8–98.7; O2SAT 95–98
[2017-03-04] MEDS: SODIUM CHLOR 0.9% 1000 ML INJ 1,000 ML IV SCH ×2 (00:51→10:51)
[2017-03-04] MEDS: ENOXAPARIN SODIUM 30 MG/0.3 ML SYRINGE SQ SCH ×2 (01:25→12:38)
[2017-03-04] MEDS: SODIUM CHLORIDE 0.9% FLUSH 10 ML FLUSH IV FLUSH SCH ×4 (01:26→19:59)
[2017-03-04] MEDS: KETOROLAC TROMETHAMINE 30 MG/ML (IVP) VIAL IVP SCH ×2 (01:27→07:30)
[2017-03-04] MEDS: ACETAMIN 325 MG/BUTALBITAL 50 MG/CAFFEINE 40 MG TAB PO PRN ×2 (05:22→12:42)
--- NOTE | 2017-03-04 06:26 | PD.ORT.PN ---
Subjective Subjective Remarks patient fell. currently not in pain. no other issues. Objective Vitals Vital Signs Date Time Temp Pulse Resp B/P (MAP) Pulse Ox O2 Delivery O2 Flow Rate FiO2 03/04/17 04:36 97.4 97 17 158/66 (96) 98 03/04/17 00:36 98.7 101 16 140/88 (105) 96 03/03/17 20:36 97.0 83 17 154/72 (99) 98 03/03/17 16:36 98.0 60 16 150/71 (97) 98 03/03/17 15:36 98.2 88 16 147/85 (105) 96 03/03/17 14:36 96.1 85 16 142/66 (91) 96 03/03/17 13:36 97.8 75 16 154/63 (93) 95 03/03/17 12:36 95.9 94 22 158/80 (106) 99 03/03/17 11:30 96.7 59 12 141/63 (89) 97 03/03/17 09:00 98.6 74 12 131/62 (85) 92 I/O 03/03/17 03/03/17 03/03/17 03/04/17 03/04/17 03/04/17 07:00 15:00 23:00 07:00 15:00 23:00 Intake Total 698 ml 480 ml Output Total 825 ml Balance 698 ml -825 ml 480 ml Intake Oral 240 ml 480 ml IV Total 458 ml Output Urine Total 725 ml Emesis 100 ml # Voids 6 4 5 # Bowel Movements 0 0 Result Diagram: 03/02/1761103/02/17611 Objective Remarks RLE: nvi. dressing CDI. nontender. good ankle and knee ROM Assessment & Plan Assessment and Plan POD1- Right tibia IMN vanc. lovenox 50% WB POD 2 dressing changes new xrays negative after fall clear to dc per ortho Roni Garsia Jr., MD Mar 04, 2017 06:26
[2017-03-04 06:31] LABS: HEMATOCRIT 32.7 % (35.0-46.0); MEAN CELL VOLUME 99.5 FL (80.0-100.0); MEAN CORPUSCULAR HEMOGLOBIN 32.6 PG (27.0-34.0); MEAN CORPUSCULAR HGB CONC 32.8 % (32.0-36.0); PLATELET COUNT 255 TH/MM3 (150-450); RED BLOOD COUNT 3.29 MIL/MM3 (4.00-5.30); RED CELL DISTRIBUTION WIDTH 14.5 % (11.6-17.2); REVIEW FLAG FINAL; WHITE BLOOD COUNT 10.3 TH/MM3 (4.0-11.0)
[2017-03-04 06:50] LABS: BICARBONATE 17.2 MEQ/L (21.0-32.0); POTASSIUM 3.3 MEQ/L (3.5-5.1)
[2017-03-04] MEDS: DOCUSATE SODIUM 50 MG/SENNA 8.6 MG TAB PO SCH ×3 (08:48→19:59)
[2017-03-04] MEDS: CITALOPRAM HYDROBROMIDE 20 MG TAB PO SCH (08:49)
[2017-03-04] MEDS ORDERED: SODIUM CHLOR 0.9% 1000 ML INJ 1,000 ML IV ONE (15:45)
[2017-03-04] MEDS ORDERED: QUEtiapine FUMARATE 25 MG TAB PO ONE (15:45)
--- NOTE | 2017-03-04 15:49 | PD.ORT.PN ---
Subjective Subjective Remarks Altered mental status Objective Vitals Vital Signs Date Time Temp Pulse Resp B/P (MAP) Pulse Ox O2 Delivery O2 Flow Rate FiO2 03/04/17 12:36 96.8 93 20 127/78 (94) 98 03/04/17 08:36 98.0 94 18 150/71 (97) 95 03/04/17 04:36 97.4 97 17 158/66 (96) 98 03/04/17 00:36 98.7 101 16 140/88 (105) 96 03/03/17 20:36 97.0 83 17 154/72 (99) 98 03/03/17 16:36 98.0 60 16 150/71 (97) 98 I/O 03/03/17 03/03/17 03/03/17 03/04/17 03/04/17 03/04/17 07:00 15:00 23:00 07:00 15:00 23:00 Intake Total 698 ml 480 ml Output Total 825 ml Balance 698 ml -825 ml 480 ml Intake Oral 240 ml 480 ml IV Total 458 ml Output Urine Total 725 ml Emesis 100 ml # Voids 6 4 5 # Bowel Movements 0 0 Result Diagram: 03/04/17 0535 03/04/17 0535 Objective Remarks RLE: nvi. dressing CDI. nontender. good ankle and knee ROM Assessment & Plan Assessment and Plan POD2- Right tibia IMN lovenox 50% WB POD 2 dressing changes clear to dc per ortho Follow-up outpatient in 2 weeks Roni Garsia Jr., MD Mar 04, 2017 15:49
--- NOTE | 2017-03-04 16:03 | HHI.PR ---
Subjective Remarks Patient is hallucinating. Confused. Required restraint today. Objective Vitals Vital Signs Date Time Temp Pulse Resp B/P (MAP) Pulse Ox O2 Delivery O2 Flow Rate FiO2 03/04/17 12:36 96.8 93 20 127/78 (94) 98 03/04/17 08:36 98.0 94 18 150/71 (97) 95 03/04/17 04:36 97.4 97 17 158/66 (96) 98 03/04/17 00:36 98.7 101 16 140/88 (105) 96 03/03/17 20:36 97.0 83 17 154/72 (99) 98 03/03/17 16:36 98.0 60 16 150/71 (97) 98 I/O 03/03/17 03/03/17 03/03/17 03/04/17 03/04/17 03/04/17 07:00 15:00 23:00 07:00 15:00 23:00 Intake Total 698 ml 480 ml Output Total 825 ml Balance 698 ml -825 ml 480 ml Intake Oral 240 ml 480 ml IV Total 458 ml Output Urine Total 725 ml Emesis 100 ml # Voids 6 4 5 # Bowel Movements 0 0 Result Diagram: 03/04/17 0535 03/04/17 05 Objective Remarks GENERAL: This is a well-nourished, well-developed patient, in no apparent distress. CARDIOVASCULAR: Normal rate and regular rhythm without murmurs, gallops, or rubs. RESPIRATORY: Good respiratory efforts. Breath sounds equal and clear to auscultation bilaterally. GASTROINTESTINAL: Abdomen soft, non-tender, non-distended. Normal active bowel sounds MUSCULOSKELETAL: Right lower extremity splinted NEURO: Alert & Oriented x4 to person, place, time, situation. PSYCH: Appropriate mood and affect. A/P Problem List: (1) Fracture of right tibia and fibula ICD Code: S82.201A - Unspecified fracture of shaft of right tibia, initial encounter for closed fracture; S82.401A - Unspecified fracture of shaft of right fibula, initial encounter for closed fracture (2) Rhabdomyolysis ICD Code: M62.82 - Rhabdomyolysis Assessment and Plan 67-year-old female admitted secondary to right tib-fib fracture status post fall Right tib-fib fracture Spiral fracture Status post right tibia intramedullary joseph fixation. Continue as needed pain medications. Patient will try to use [place] as needed PT Patient may need snf facility at discharge S/P fall in the Hospital./Broken nose - Patient seen by ENT. Recommends outpatient follow up Delirium, likely related to medical condition -Give a dose of Seroquel. Redirect. Move closer to nursing station Hyponatremia: - Likely hypovolemic. Give a bolus NS and start IVF with KCL. Nicotine Abuse Patient declines NicoDerm DVT Prophylaxis Lovenox Discharge Planning Pending improvement in clinical condition. Will likely need SNF. Colton Clark MD Mar 04, 2017 16:03
[2017-03-04 17:38] LABS: BACTERIA, URINE RARE /hpf; BLOOD, URINE MOD (NEG); COMMENT (UR) CULT NOT INDICATED; CULTURE IF INDICATED CULT NOT INDICATED; GLUCOSE,URINE NEG (NEG); KETONE, URINE TRACE mg/dL (NEG); NITRITE,URINE NEG (NEG); URINE COLOR LIGHT-YELLOW (YELLW/STRAW)
[2017-03-04] MEDS: D5-1/2 NS + KCL 20 MEQ INJ 1,000 ML IV SCH (19:58)
[2017-03-04] MEDS: MAGNESIUM HYDROXIDE SUSP 30 ML CUP PO PRN (19:59)
[2017-03-05] VITALS (8 sets, daily range): BP systolic 126–155; BP diastolic 64–76; PULSE 75–100; RESP 17–20; TEMP 96.7–98.5; O2SAT 94–97
[2017-03-05] MEDS: ENOXAPARIN SODIUM 30 MG/0.3 ML SYRINGE SQ SCH (00:02)
[2017-03-05] MEDS: D5-1/2 NS + KCL 20 MEQ INJ 1,000 ML IV SCH ×2 (03:23→20:52)
[2017-03-05] MEDS: DOCUSATE SODIUM 50 MG/SENNA 8.6 MG TAB PO SCH ×2 (09:00→20:10)
[2017-03-05] MEDS: SODIUM CHLORIDE 0.9% FLUSH 10 ML FLUSH IV FLUSH SCH ×2 (09:00→20:12)
[2017-03-05 09:03] LABS: MEAN CELL VOLUME 97.8 FL (80.0-100.0); MEAN CORPUSCULAR HEMOGLOBIN 33.2 PG (27.0-34.0); PLATELET COUNT 335 TH/MM3 (150-450); RED BLOOD COUNT 3.48 MIL/MM3 (4.00-5.30); RED CELL DISTRIBUTION WIDTH 14.4 % (11.6-17.2); REVIEW FLAG FINAL; WHITE BLOOD COUNT 8.4 TH/MM3 (4.0-11.0)
[2017-03-05 09:27] LABS: POTASSIUM 2.7 MEQ/L (3.5-5.1)
[2017-03-05] MEDS: POTASSIUM CHLOR 20 MEQ PREMIX 100 ML IV SCH ×2 (10:19→22:03)
[2017-03-05] MEDS: CITALOPRAM HYDROBROMIDE 20 MG TAB PO SCH (10:19)
[2017-03-05] MEDS ORDERED: POTASSIUM CHLORIDE 20 MEQ CONTROLLED RELEASE TAB PO ONE (11:00)
[2017-03-05 11:04] LABS: CKMB 37.3 NG/ML (0.5-3.6)
--- NOTE | 2017-03-05 13:26 | HHI.PR ---
Subjective Remarks Patient remain confused requiring restraints. I spoke with her daughter who is out of state. She recall the patient has a history of depression and note that she might have had some issues with taking more Fioricet than what was prescribed. No new focal deficits. Objective Vitals Vital Signs Date Time Temp Pulse Resp B/P (MAP) Pulse Ox O2 Delivery O2 Flow Rate FiO2 03/05/17 12:00 98.5 76 18 155/69 (97) 95 03/05/17 08:00 97.3 75 18 126/76 (93) 95 03/05/17 05:00 97.9 76 18 130/64 (86) 94 03/05/17 01:05 97.5 96 20 150/71 (97) 95 03/04/17 22:20 67 03/04/17 21:35 98.4 84 22 148/66 (93) 97 03/04/17 16:00 98.5 92 18 130/75 (93) 95 I/O 03/04/17 03/04/17 03/04/17 03/05/17 03/05/17 03/05/17 07:00 15:00 23:00 07:00 15:00 23:00 Intake Total 1120 ml 772 ml 60 ml Balance 1120 ml 772 ml 60 ml Intake Oral 120 ml 60 ml IV Total 1000 ml 772 ml # Voids 5 3 5 # Bowel Movements 0 0 Result Diagram: 03/05/1736 03/05/17835 Objective Remarks GENERAL: This is a well-nourished, well-developed patient, in no apparent distress. CARDIOVASCULAR: Normal rate and regular rhythm without murmurs, gallops, or rubs. RESPIRATORY: Breath sounds equal and clear to auscultation bilaterally. GASTROINTESTINAL: Abdomen soft, non-tender, non-distended. Normal active bowel sounds MUSCULOSKELETAL: Right lower extremity postoperative splint NEURO: She is clear but the patient is confused, appeared to be hallucinating PSYCH: Agitated A/P Problem List: (1) Fracture of right tibia and fibula ICD Code: S82.201A - Unspecified fracture of shaft of right tibia, initial encounter for closed fracture; S82.401A - Unspecified fracture of shaft of right fibula, initial encounter for closed fracture (2) Rhabdomyolysis ICD Code: M62.82 - Rhabdomyolysis Assessment and Plan 67-year-old female admitted secondary to right tib-fib fracture status post fall Right tib-fib fracture Spiral fracture Status post right tibia intramedullary joseph fixation. Continue as needed pain medications. Patient will try to use [place] as needed Routine postoperative care per orthopedics Patient may need intermediate facility at discharge S/P fall in the Hospital after getting out of bed unassisted./Broken nose - Patient seen by ENT. Recommends outpatient follow up Delirium, likely related to medical condition. Unclear if medication withdrawal is contributing as well -Patient does not appear to be sleeping. Resume trazodone at night. - Consult psychiatry for assistance with agitation symptoms - Start Seroquel low dose 25 mg BID. Elevated CK: Expected after fall and orthopedics surgery. Renal function stable. Continue to monitor. Hyponatremia: -Resolved with IV fluid. Hypokalemia: - Replace and monitor. Nicotine Abuse Patient declines NicoDerm DVT Prophylaxis Lovenox Discharge Planning Pending improvement in clinical condition. Will likely need SNF. Colton Clark MD Mar 05, 2017 13:26
--- NOTE | 2017-03-05 13:48 | PD.ORT.PN ---
Subjective Subjective Remarks Altered mental status Objective Vitals Vital Signs Date Time Temp Pulse Resp B/P (MAP) Pulse Ox O2 Delivery O2 Flow Rate FiO2 03/05/17 12:00 98.5 76 18 155/69 (97) 95 03/05/17 08:00 97.3 75 18 126/76 (93) 95 03/05/17 05:00 97.9 76 18 130/64 (86) 94 03/05/17 01:05 97.5 96 20 150/71 (97) 95 03/04/17 22:20 67 03/04/17 21:35 98.4 84 22 148/66 (93) 97 03/04/17 16:00 98.5 92 18 130/75 (93) 95 I/O 03/04/17 03/04/17 03/04/17 03/05/17 03/05/17 03/05/17 07:00 15:00 23:00 07:00 15:00 23:00 Intake Total 1120 ml 772 ml 60 ml Balance 1120 ml 772 ml 60 ml Intake Oral 120 ml 60 ml IV Total 1000 ml 772 ml # Voids 5 3 5 # Bowel Movements 0 0 Result Diagram: 03/05/1736 03/05/1736 Objective Remarks RLE: nvi. dressing CDI. nontender. good ankle and knee ROM Assessment & Plan Assessment and Plan POD3- Right tibia IMN lovenox 50% WB POD 2 dressing changes clear to dc per ortho sign off Follow-up outpatient in 2 weeks Roni Garsia Jr., MD Mar 05, 2017 13:48
--- NOTE | 2017-03-05 17:30 | RADRPT ---
EXAM DATE/TIME: 03/05/2017 17:15 [facility] COMPARISON: CT BRAIN W/O CONTRAST, March 03, 2017, 13:34. INDICATIONS : Altered mental status. RADIATION DOSE: 28.18 CTDIvol (mGy) MEDICAL HISTORY : Seizures. Carcinoma, breast. SURGICAL HISTORY : Mastectomy, bilateral. Hysterectomy. ENCOUNTER: Initial ACUITY: 1 day PAIN SCALE: Non-responsive LOCATION: cranial TECHNIQUE: Multiple contiguous axial images were obtained of the head. Using automated exposure control and adj ustment of the mA and/or kV according to patient size, radiation dose was kept as low as reasonably a chievable to obtain optimal diagnostic quality images. DICOM format image data is available electro nically for review and comparison. FINDINGS: CEREBRUM: The ventricles are normal for age. No evidence of midline shift, mass lesion, hemorrhage or acute in farction. No extra-axial fluid collections are seen. POSTERIOR FOSSA: The cerebellum and brainstem are intact. The 4th ventricle is midline. The cerebellopontine angle i s unremarkable. EXTRACRANIAL: The visualized portion of the orbits is intact. SKULL: The calvaria is intact. No evidence of skull fracture. CONCLUSION: Unremarkable and stable CT brain compared to the prior study. No new or significant changes. Leo Vallejo MD on March 05, 2017 at 17:27 Board Certified Radiologist. This report was verified electronically.
[2017-03-05] MEDS: ACETAMIN 325 MG/BUTALBITAL 50 MG/CAFFEINE 40 MG TAB PO PRN (20:10)
[2017-03-05] MEDS: QUEtiapine FUMARATE 25 MG TAB PO SCH (20:10)
[2017-03-05] MEDS: LORazepam 2 MG/ML VIAL IV PUSH PRN (20:11)
[2017-03-05] MEDS: traZODone HCL 100 MG TAB PO SCH (20:11)
[2017-03-06 03:45] VITALS: BP 136/63; PULSE 84; RESP 18; TEMP 98.6; O2SAT 96
[2017-03-06] MEDS: D5-1/2 NS + KCL 20 MEQ INJ 1,000 ML IV SCH ×3 (04:04→22:28)
[2017-03-06] MEDS: ACETAMIN 325 MG/BUTALBITAL 50 MG/CAFFEINE 40 MG TAB PO PRN (04:07)
[2017-03-06] MEDS: LORazepam 2 MG/ML VIAL IV PUSH PRN (04:08)
[2017-03-06 08:00] VITALS: BP 132/60; PULSE 90; RESP 17; TEMP 98.8; O2SAT 96
[2017-03-06 08:47] LABS: HEMATOCRIT 30.6 % (35.0-46.0); MEAN CELL VOLUME 97.7 FL (80.0-100.0); MEAN CORPUSCULAR HEMOGLOBIN 32.9 PG (27.0-34.0); MEAN CORPUSCULAR HGB CONC 33.7 % (32.0-36.0); PLATELET COUNT 299 TH/MM3 (150-450); RED BLOOD COUNT 3.13 MIL/MM3 (4.00-5.30); RED CELL DISTRIBUTION WIDTH 14.4 % (11.6-17.2); REVIEW FLAG FINAL; WHITE BLOOD COUNT 7.5 TH/MM3 (4.0-11.0)
[2017-03-06] MEDS: SODIUM CHLORIDE 0.9% FLUSH 10 ML FLUSH IV FLUSH SCH ×2 (09:00→22:28)
[2017-03-06] MEDS: DOCUSATE SODIUM 50 MG/SENNA 8.6 MG TAB PO SCH ×2 (09:06→22:28)
[2017-03-06] MEDS: CITALOPRAM HYDROBROMIDE 20 MG TAB PO SCH (09:06)
[2017-03-06] MEDS: QUEtiapine FUMARATE 25 MG TAB PO SCH ×2 (09:06→22:28)
[2017-03-06] MEDS: ENOXAPARIN SODIUM 30 MG/0.3 ML SYRINGE SQ SCH (09:07)
[2017-03-06 09:08] LABS: BICARBONATE 23.7 MEQ/L (21.0-32.0); POTASSIUM 3.7 MEQ/L (3.5-5.1)
[2017-03-06 09:42] LABS: CKMB 20.7 NG/ML (0.5-3.6)
--- NOTE | 2017-03-06 10:02 | HHI.PR ---
Subjective Remarks Patient is still delirious, appeared to be responding to internal stimuli, hallucinating. Discussed the case with psychiatry. Objective Vitals Vital Signs Date Time Temp Pulse Resp B/P (MAP) Pulse Ox O2 Delivery O2 Flow Rate FiO2 03/06/17 08:00 98.8 90 17 132/60 (84) 96 03/06/17 03:45 98.6 84 18 136/63 (87) 96 03/05/17 23:35 96.7 100 17 155/69 (97) 97 03/05/17 20:05 86 03/05/17 19:40 97.3 96 17 145/65 (91) 96 03/05/17 16:00 97.4 75 18 145/69 (94) 97 03/05/17 12:00 98.5 76 18 155/69 (97) 95 I/O 03/05/17 03/05/17 03/05/17 03/06/17 03/06/17 03/06/17 07:00 15:00 23:00 07:00 15:00 23:00 Intake Total 772 ml 120 ml 160 ml 1384 ml Balance 772 ml 120 ml 160 ml 1384 ml Intake Oral 120 ml 60 ml 60 ml IV Total 772 ml 100 ml 1324 ml # Voids 8 4 3 # Bowel Movements 1 0 0 Result Diagram: 03/06/17 0759 03/06/17 0759 Objective Remarks GENERAL: This is a well-nourished, well-developed patient, in no apparent distress. CARDIOVASCULAR: Normal rate and regular rhythm without murmurs, gallops, or rubs. RESPIRATORY: Breath sounds equal and clear to auscultation bilaterally. GASTROINTESTINAL: Abdomen soft, non-tender, non-distended. Normal active bowel sounds MUSCULOSKELETAL: Right lower extremity postoperative splint NEURO: Speech is clear but the patient is confused, hallucinating PSYCH: Agitated A/P Problem List: (1) Fracture of right tibia and fibula ICD Code: S82.201A - Unspecified fracture of shaft of right tibia, initial encounter for closed fracture; S82.401A - Unspecified fracture of shaft of right fibula, initial encounter for closed fracture (2) Rhabdomyolysis ICD Code: M62.82 - Rhabdomyolysis Assessment and Plan 67-year-old female admitted secondary to right tib-fib fracture status post fall Right tib-fib fracture Spiral fracture Status post right tibia intramedullary joseph fixation. Continue as needed pain medications. Patient will try to use [place] as needed Routine postoperative care per orthopedics Patient may need assisted facility at discharge S/P fall in the Hospital after getting out of bed unassisted./Broken nose - Patient seen by ENT. Recommends outpatient follow up Delirium, likely related to medical condition. Fioricet withdrawal is probably contributing based on discussion with the psychiatrist. - Per psychiatry recommendations, start Ativan 2 mg every 4 hours. Taper as tolerated. -Patient does not appear to be sleeping. Continue trazodone at night -Continue Seroquel low dose 25 mg BID. Elevated CK: Expected after fall and orthopedics surgery. Renal function stable. Continue to monitor. Hyponatremia: -Resolved with IV fluid. Hypokalemia: - Replace and monitor. Nicotine Abuse Patient declines NicoDerm DVT Prophylaxis Lovenox Discharge Planning Continue to monitor overnight, may consider transfer to med psych tomorrow Colton Clark MD Mar 06, 2017 10:02
[2017-03-06] MEDS ORDERED: LORazepam 2 MG TAB PO PRN (10:15)
[2017-03-06 12:00] VITALS: BP 139/63; PULSE 87; RESP 18; TEMP 99.7; O2SAT 97
[2017-03-06] MEDS ORDERED: LORazepam 2 MG/ML VIAL IV PUSH PRN (13:30)
--- NOTE | 2017-03-06 14:50 | PD.PSY.CON ---
Provisional Diagnosis Admission Date Mar 01, 2017 at 04:52 [place]. Delirium due to underlying medical conditions History of Present Illness Service Psychiatry Consult Requested By Hospitalist Reason for Consult Psychosis Primary Care Physician Moris Kiser M.D. HPI The patient is a 67-year-old woman, with psychiatric history of depression, anxiety, she is on citalopram and trazodone, admitted in the hospital due to secondary to right tib-fib fracture status post fall. She is DX with Right tib-fib fracture. Spiral fracture. Now with Delirium, likely related to medical condition. Unclear if medication withdrawal is contributing as well. She was started in Seroquel 25 twice a day. On psychiatric evaluation patient is restrained in 4-point, agitated, with in person sensorium, visibly delirious. Patient has fluctuation of consciousness, and in her brief periods of sobriety she says that she has psychiatric history of depression, unable to say if she had hospitalizations or suicide attempts. Patient is having visual hallucinations, she says that she sees 18 people inside her room. He disorganized, tangential, illogical. Completely disoriented. As per conversation with nursing charge and [place], patient has history of using, most probably also abusing, Fioricet, benzodiazepines and pain medication. Review of Systems Except as stated in HPI: all other systems reviewed are Neg Past Family Social History Coded Allergies: aspirin (Unverified Adverse Reaction, Severe, gi bleed, 01/02/17) morphine (Unverified Adverse Reaction, Intermediate, hypotension , 01/02/17 ) Active Scripts Oxycodone-Acetaminophen (Percocet) 5-325 mg Tab, 1 TAB PO Q4H Y for PAIN, #60 TAB 0 Refills Prov:Roni Garsia Jr., MD 03/02/17 Ondansetron (Zofran ODT) 4 Mg Tab, 4 MG SL Q6H Y for NAUSEA OR VOMITING, #4 TAB FOR NAUSEA/VOMITING Prov:Arsen Chandra MD 09/28/15 Acetamin/Butalbital/Caffeine (Fioricet Tab) 1 Tab, 1 TAB PO Q6H Y for HEADACHE, #20 TAB Prov:Arsen Chandra MD 09/28/15 Reported Medications Ibuprofen (Ibuprofen) 800 Mg Tab, 800 MG PO TID Y for PAIN SCALE 1 TO 10, TAB 0 Refills 03/01/17 Ondansetron Odt (Zofran Odt) 4 Mg Tab, 4 MG SL Q8HR Y for Nausea/Vomiting, #30 TAB 0 Refills 03/01/17 Citalopram (Citalopram) 40 Mg Tab, 40 MG PO DAILY for Control Depression, #30 TAB 0 Refills 03/01/17 Gabapentin (Gabapentin) 100 Mg Cap, 100 MG PO BID, #60 CAP 0 Refills 03/01/17 Trazodone (Trazodone) 100 Mg Tablet, 100 MG PO HS for Control Depression, #30 TAB 0 Refills 03/01/17 Gabapentin (Gabapentin) 100 Mg Cap, PO HS, CAP 02/19/15 Ondansetron (Zofran ODT) 4 Mg Tab, 4 MG SL Q6H Y for NAUSEA OR VOMITING, TAB FOR NAUSEA/VOMITING 02/19/15 Acetamin/Butalbital/Caffeine (Fioricet Tab) 1 Tab Tab, 1 TAB PO Q4H Y for HEADACHE, TAB 05/29/13 Citalopram Hydrobromide (Citalopram Hydrobromide) 20 Mg Tab, 10 MG PO DAILY, TAB 05/29/13 Current Medications Medications (Trade) Dose Ordered Sig/[place] Route Start Time Stop Time Status Last Admin (Zofran Inj) 4 mg Q6H PRN IVP 03/01/17 03:00 03/03/17 01:18 (Dilaudid Pf Inj) 0.5 mg Q3H PRN IV PUSH 03/01/17 03:00 03/01/17 04:17 (Dilaudid Pf Inj) 1 mg Q3H PRN IV PUSH 03/01/17 03:00 03/02/17 22:41 (Narcan Inj) 0.4 mg UNSCH PRN IV PUSH 03/01/17 03:00 (CeleXA) 10 mg DAILY PO 03/01/17 09:00 03/06/17 09:06 (NS Flush) 2 ml UNSCH PRN IV FLUSH 03/02/17 13:30 (NS Flush) 2 ml BID IV FLUSH 03/02/17 21:00 03/05/17 20:12 (Morphine Inj) 5 mg Q3H PRN IV PUSH 03/02/17 13:30 (Percocet 5-325 Mg) 1 tab Q4H PRN PO 03/02/17 13:30 03/03/17 18:52 (Phenergan) 25 mg Q4H PRN PO 03/02/17 13:30 03/04/17 01:36 (Ambien) 5 mg HS PRN PO 03/02/17 13:30 ([place]ne-Colace) 1 tab BID PO 03/02/17 21:00 03/06/17 09:06 (Milk Of Magnesia Liq) 30 ml Q12H PRN PO 03/02/17 13:30 03/04/17 19:59 (Senokot) 17.2 mg Q12H PRN PO 03/02/17 13:30 03/04/17 19:59 (Dulcolax Supp) 10 mg DAILY PRN RECTAL 03/02/17 13:30 (Lactulose Liq) 30 ml DAILY PRN PO 03/02/17 13:30 (Benadryl) 25 mg Q6H PRN PO 03/03/17 13:00 03/04/17 19:59 Potassium Chloride/Dextrose/ Sod Cl 1,000 ml @ 125 mls/hr Q8H IV 03/04/17 16:00 03/06/17 04:04 (Desyrel) 100 mg HS PO 03/05/17 21:00 03/05/17 20:11 (Lovenox Inj) 30 mg DAILY SQ 03/06/17 09:00 03/06/17 09:07 (SEROquel) 25 mg BID PO 03/05/17 14:00 03/06/17 09:06 (Ativan Inj) 2 mg Q6H PRN IV PUSH 03/06/17 13:30 (Ativan) 2 mg Q6H PRN PO 03/06/17 10:15 Physical Exam Vital Signs Vital Signs Date Time Temp Pulse Resp B/P (MAP) Pulse Ox O2 Delivery O2 Flow Rate FiO2 03/06/17 12:00 99.7 87 18 139/63 (88) 97 03/02/17 13:15 Nasal Cannula 3 I/O 03/06/17 03/06/17 03/07/17 08:00 16:00 00:00 Intake Total 1384 ml Balance 1384 ml Lab Results Test 03/06/17 07:59 White Blood Count 7.5 TH/MM3 Red Blood Count 3.13 MIL/MM3 Hemoglobin 10.3 GM/DL Hematocrit 30.6 % Mean Corpuscular Volume 97.7 FL Mean Corpuscular Hemoglobin 32.9 PG Mean Corpuscular Hemoglobin Concent 33.7 % Red Cell Distribution Width 14.4 % Platelet Count 299 TH/MM3 Mean Platelet Volume 7.1 FL Blood Urea Nitrogen 9 MG/DL Creatinine 0.57 MG/DL Random Glucose 107 MG/DL Calcium Level 8.4 MG/DL Sodium Level 139 MEQ/L Potassium Level 3.7 MEQ/L Chloride Level 109 MEQ/L Carbon Dioxide Level 23.7 MEQ/L Anion Gap 6 MEQ/L Estimat Glomerular Filtration Rate 105 ML/MIN Total Creatine Kinase 1546 U/L Creatine Kinase MB 20.7 NG/ML Creatine Kinase MB % 1.3 % Mental Status Examination Appearance: Appropriate Consciousness: Clouded Orientation: Person Motor Activity: Other (agitated) Speech: Incoherent Fund of Knowledge: Poor Memory: Impaired Mood: Angry, Irritable Affect: Irritable Thought Process & Associations: Loose associations, Disorganized Thought Content: Racing thoughts Hallucination Type: Visual Delusion Type: None Suicidal Ideation: No Suicidal Plan: No Suicidal Intention: No Homicidal Ideation: No Homicidal Plan: No Homicidal Intention: No Insight: Poor Judgment: Impulsive Assessment & Plan Problem List: (1) Delirium due to another medical condition ICD Codes: F05 - Delirium due to known physiological condition Assessment & Plan: On psychiatric evaluation today patient is restrained in 4 points, agitated, restless, very disorganized, tangential, disoriented, with a fluctuating level of consciousness, objective visual hallucinations of people inside her room. This presentation seems to be congruent with delirium most probably related with underlying medical conditions, but given the hyperactive nature of the delirium drug withdrawal is highly suspicious. Fioricet abuse is suspected. Fioricet is well known for this can of very hyperactive delirium with visual hallucinations. Continue CIWA protocol. A scale of Ativan 2 mg every 4 hours or Librium 50 mg every 4 hours, to be tapered down by 25% per day , at the patient can tolerate, is recommended. Continue Seroquel 25 mg twice a day to control agitation and psychosis. Can also order Haldol 2 mg IM every 8 hours when necessary aggressive behavior and agitation. If psychosis persist beyond medical clearance, patient can be transferred to med psych unit. Case discussed with treating physician and nurse in charge. We'll follow-up. Assessment & Plan Estimated LOS: Joaquin Martinez MD Mar 06, 2017 14:50
[2017-03-06 16:00] VITALS: BP 136/72; PULSE 85; RESP 17; TEMP 98.3; O2SAT 96
[2017-03-06] MEDS: LORazepam 2 MG TAB PO SCH ×2 (17:12→22:28)
[2017-03-06 19:30] VITALS: BP 133/65; PULSE 76; RESP 17; TEMP 97.8
[2017-03-06 20:20] VITALS: PULSE 100
[2017-03-06] MEDS: traZODone HCL 100 MG TAB PO SCH (22:28)
[2017-03-07] VITALS (7 sets, daily range): BP systolic 131–168; BP diastolic 66–77; PULSE 63–99; RESP 17–18; TEMP 95.9–99.3; O2SAT 97–99
[2017-03-07] MEDS: LORazepam 2 MG TAB PO SCH ×7 (04:00→23:29)
[2017-03-07] MEDS: D5-1/2 NS + KCL 20 MEQ INJ 1,000 ML IV SCH ×4 (04:54→23:29)
[2017-03-07] MEDS: ENOXAPARIN SODIUM 30 MG/0.3 ML SYRINGE SQ SCH (08:29)
[2017-03-07] MEDS: DOCUSATE SODIUM 50 MG/SENNA 8.6 MG TAB PO SCH ×2 (08:29→20:55)
[2017-03-07] MEDS: QUEtiapine FUMARATE 25 MG TAB PO SCH ×2 (08:29→20:55)
[2017-03-07] MEDS: CITALOPRAM HYDROBROMIDE 20 MG TAB PO SCH (08:29)
[2017-03-07] MEDS: SODIUM CHLORIDE 0.9% FLUSH 10 ML FLUSH IV FLUSH SCH ×2 (08:29→20:55)
--- NOTE | 2017-03-07 11:16 | HHI.DS ---
Discharge Summary Admission Date Mar 01, 2017 at 04:52 Discharge Date: Mar 07, 2017 Admitting Diagnosis (1) Fracture of right tibia and fibula ICD Code: S82.201A - Unspecified fracture of shaft of right tibia, initial encounter for closed fracture; S82.401A - Unspecified fracture of shaft of right fibula, initial encounter for closed fracture (2) Rhabdomyolysis ICD Code: M62.82 - Rhabdomyolysis Procedures Right tibia intramedullary joseph fixation Brief History - From Admission Mrs. Serna is a 67-year-old female. She tripped and fell at home. This has resulted in a spiral fracture of her right tibia-fibula fibula. She also has some rhabdomyolysis. She was found on the floor. She may have been on the floor about 24 hours. No other complaints. When seeing her pain is well- controlled. She has a prior fall with a right humerus fracture. CBC/BMP: 03/06/17 0759 03/06/17 0759 Significant Findings Laboratory Tests Test 03/04/17 17:00 03/05/17 08:36 03/06/17 07:59 Urine Protein 30 mg/dL (NEG-TRACE) Urine Ketones TRACE mg/dL (NEG) Urine Occult Blood MOD (NEG) Urine RBC 5 /hpf (0-3) Urine Bacteria RARE /hpf (NONE) Red Blood Count 3.48 MIL/MM3 (4.00-5.30) 3.13 MIL/MM3 (4.00-5.30) Hematocrit 34.0 % (35.0-46.0) 30.6 % (35.0-46.0) Random Glucose 125 MG/DL (74-106) 107 MG/DL (74-106) Potassium Level 2.7 MEQ/L (3.5-5.1) Total Creatine Kinase 2754 U/L (26-192) 1546 U/L (26-192) Creatine Kinase MB 37.3 NG/ML (0.5-3.6) 20.7 NG/ML (0.5-3.6) Hemoglobin 10.3 GM/DL (11.6-15.3) Calcium Level 8.4 MG/DL (8.5-10.1) Chloride Level 109 MEQ/L (98-107) Imaging Last Impressions Head CT 03/05/17 0000 Signed Impressions: Service Date/Time: Sunday, March 05, 2017 17:15 - CONCLUSION: Unremarkable and stable CT brain compared to the prior study. No new or significant changes. Leo Vallejo MD Tibia/Fibula X-Ray 03/03/17 0000 Signed Impressions: Service Date/Time: Friday, March 03, 2017 13:43 - CONCLUSION: Postsurgical changes as above. Mehdi Patterson MD Maxillofacial CT 03/03/17 0000 Signed Impressions: Service Date/Time: Friday, March 03, 2017 13:34 - CONCLUSION: 1. Nondisplaced fracture the nasal septum Mehdi Patterson MD Foot X-Ray 03/01/17 0000 Signed Impressions: Service Date/Time: Wednesday, March 01, 2017 00:08 - CONCLUSION: 1. No acute fracture within the right foot. There are fractures of the distal right tibia and fibula. Philip Goldberg MD Cervical Spine CT 02/28/17 0000 Signed Impressions: Service Date/Time: Wednesday, March 01, 2017 00:18 - CONCLUSION: 1. Moderate degenerative change. No acute findings. Philip Goldberg MD PE at Discharge GENERAL: This is a well-nourished, well-developed patient, in no apparent distress. CARDIOVASCULAR: Normal rate and regular rhythm without murmurs, gallops, or rubs. RESPIRATORY: Breath sounds equal and clear to auscultation bilaterally. GASTROINTESTINAL: Abdomen soft, non-tender, non-distended. Normal active bowel sounds MUSCULOSKELETAL: Right lower extremity postoperative splint NEURO: Speech is clear but the patient is confused, hallucinating PSYCH: Agitated Pt update on day of discharge Patient is still hallucinating. Slightly more calm. Discussed with her daughter at bedside. Apparently she was abusing Fioricet at home. Her bottle at home that was filled recently is almost empty. Hospital Course 67-year-old female admitted secondary to right tib-fib fracture status post fall. This was reported as a mechanical fall. However later during the course of the hospitalization, the patient became delirious. He was later found out she was abusing Fioricet at home. Based on discussion with her daughter, she took most of the bottle that was recently filled. Patient to remain psychotic and is discharged to the med psych unit to continue treatment for delirium and psychosis. Evaluation and treatment course detailed below: Right tib-fib fracture Spiral fracture Status post right tibia intramedullary joseph fixation. Continue as needed pain medications. Ibuprofen as needed. Routine postoperative care per orthopedics Physical therapy as needed. S/P fall in the Hospital after getting out of bed unassisted./Broken nose - Patient seen by ENT. Recommends outpatient follow up - Repeat brain CT unremarkable. Delirium, likely related to medical condition. Fioricet withdrawal is the likely culprit based on discussion with the psychiatrist. - Per psychiatry recommendations, start Ativan 2 mg every 4 hours. This was ordered. Taper as tolerated -Patient to continue treatment at the psychiatric unit. Continue trazodone at night -Continue Seroquel low dose 25 mg BID. - Check acetaminophen level. Will be followed at the psychiatric unit. Elevated CK: Expected after fall and orthopedics surgery. Renal function stable. Started to trend down. Continue to monitor. Hyponatremia: -Resolved with IV fluid. Hypokalemia: - Replace and monitor. Nicotine Abuse Patient was counseled to stop using tobacco products. Pt Condition on Discharge: Stable Discharge Disposition: Disc to Psych Care Fac Discharge Time: > 30 minutes Discharge Instructions DIET: Follow Instructions for: Heart Healthy Diet Activities you can perform: See Additionl Instruction Other Activity Instructions: Per Orthopedics instructions Follow up Referrals: Orthopedics - 2 Weeks with Roni Garsia Jr., MD Continued Medications: Citalopram Hydrobromide (Citalopram Hydrobromide) 20 Mg Tab 10 MG PO DAILY, TAB Gabapentin (Gabapentin) 100 Mg Cap 100 MG PO BID, #60 CAP 0 Refills Ibuprofen (Ibuprofen) 800 Mg Tab 800 MG PO TID PRN for PAIN SCALE 1 TO 10, TAB 0 Refills Trazodone (Trazodone) 100 Mg Tablet 100 MG PO HS for Control Depression, #30 TAB 0 Refills Discontinued Medications: Acetamin/Butalbital/Caffeine (Fioricet Tab) 1 Tab Tab 1 TAB PO Q4H PRN for HEADACHE, TAB Acetamin/Butalbital/Caffeine (Fioricet Tab) 1 Tab 1 TAB PO Q6H PRN for HEADACHE, #20 TAB Citalopram (Citalopram) 40 Mg Tab 40 MG PO DAILY for Control Depression, #30 TAB 0 Refills Gabapentin (Gabapentin) 100 Mg Cap Unknown Dose PO HS, CAP Ondansetron (Zofran ODT) 4 Mg Tab 4 MG SL Q6H PRN for NAUSEA OR VOMITING, TAB FOR NAUSEA/VOMITING Ondansetron Odt (Zofran Odt) 4 Mg Tab 4 MG SL Q8HR PRN for Nausea/Vomiting, #30 TAB 0 Refills Ondansetron (Zofran ODT) 4 Mg Tab 4 MG SL Q6H PRN for NAUSEA OR VOMITING, #4 TAB FOR NAUSEA/VOMITING Colton Clark MD Mar 07, 2017 11:16
--- NOTE | 2017-03-07 14:30 | HHI.PYPN ---
Subjective Remarks I have seen and examined this patient for psychiatric reevaluation, patient continues to be very disorganized, disoriented and confused, internally stimulated, unable to provide any meaningful information for the psychiatric assessment. She is having active visual hallucinations. At times agitated and combative. With visible tremors and clonus. I spoke with her daughter Enoch Stack, , was explained that the patient does not have any significant previous psychiatric history, no significant suicidal attempts or hospitalizations. Patient was born and raised in [place], she lives alone in [facility], has a roommate, has 2 daughters, she is and supported by patient. Her daughter believes that he is highly possible that the patient was abusing prescribed medications. Review of Systems Except as stated in HPI: all other systems reviewed are Neg Mental Status Examination Appearance: Appropriate Consciousness: Clouded Orientation: Person Motor Activity: Other (agitated) Speech: Incoherent Fund of Knowledge: Poor Memory: Impaired Mood: Angry, Irritable Affect: Irritable Thought Process & Associations: Loose associations, Disorganized Thought Content: Racing thoughts Hallucination Type: Visual Delusion Type: None Suicidal Ideation: No Suicidal Plan: No Suicidal Intention: No Homicidal Ideation: No Homicidal Plan: No Homicidal Intention: No Insight: Poor Judgment: Impulsive Results Vitals/IOs Vital Signs Date Time Temp Pulse Resp B/P (MAP) Pulse Ox O2 Delivery O2 Flow Rate FiO2 03/07/17 12:00 99.3 98 18 147/66 (93) 98 03/07/17 03:47 Room Air Intake and Output 03/07/17 03/07/17 03/08/17 08:00 16:00 00:00 Intake Total 1060 ml Balance 1060 ml Assessment & Plan Problem List: (1) Delirium due to another medical condition ICD Codes: F05 - Delirium due to known physiological condition Assessment & Plan: Patient continues to be actively delirious. Tremors and clonus present. Agree with CIWA. Agree with ATIVAN 2 mg q/4 po. We'll continue follow-up. Withdrawal from Fioricet could be quite difficult to manage sometimes. Might consider switching a scale of Ativan with scheduled phenobarbital 130/260 milligrams every 4 hours, and decreased 25% every day is patient can tolerate. Assessment & Plan Estimated LOS: days Justification for Cont. Inpt. Patient might need psychiatric admission if psychosis persist beyond medical clearance. Joaquin Garcia MD Mar 07, 2017 14:30
[2017-03-07 16:24] LABS: ACETAMINOPHEN LESS THAN 2.0 MCG/ML (10.0-30.0); ALKALINE PHOSPHATASE 103 U/L (45-117); ALT (GPT) 53 U/L (10-53); ANION GAP 6 MEQ/L (5-15); AST (GOT) 41 U/L (15-37); BICARBONATE 27.1 MEQ/L (21.0-32.0); BLOOD UREA NITROGEN 6 MG/DL (7-18); CHLORIDE 109 MEQ/L (98-107); GLOMERULAR FILTRATION RATE 112 ML/MIN (>89); POTASSIUM 3.6 MEQ/L (3.5-5.1); SODIUM (NA) 142 MEQ/L (136-145); TOTAL BILIRUBIN ADULT 0.5 MG/DL (0.2-1.0)
[2017-03-07] MEDS: oxyCODONE/ACETAMINOPHEN 5 MG/325 MG TAB PO PRN (20:53)
[2017-03-07] MEDS: traZODone HCL 100 MG TAB PO SCH (20:55)
[2017-03-07] MEDS: MAGNESIUM HYDROXIDE SUSP 30 ML CUP PO PRN (20:55)
[2017-03-08] VITALS: BP 136/66; PULSE 81; RESP 16; TEMP 96.4; O2SAT 97
[2017-03-08 04:00] VITALS: BP 163/83; PULSE 80; RESP 15; TEMP 96.2; O2SAT 99
[2017-03-08] MEDS: LORazepam 2 MG TAB PO SCH ×4 (04:53→16:00)
[2017-03-08] MEDS: D5-1/2 NS + KCL 20 MEQ INJ 1,000 ML IV SCH (04:54)
[2017-03-08 08:00] VITALS: BP 165/94; PULSE 75; RESP 18; TEMP 96; O2SAT 99
[2017-03-08] MEDS: SODIUM CHLORIDE 0.9% FLUSH 10 ML FLUSH IV FLUSH SCH (09:00)
[2017-03-08] MEDS: DOCUSATE SODIUM 50 MG/SENNA 8.6 MG TAB PO SCH (09:41)
[2017-03-08] MEDS: QUEtiapine FUMARATE 25 MG TAB PO SCH (09:41)
[2017-03-08] MEDS: ENOXAPARIN SODIUM 30 MG/0.3 ML SYRINGE SQ SCH (09:41)
[2017-03-08] MEDS: CITALOPRAM HYDROBROMIDE 20 MG TAB PO SCH (09:41)
--- NOTE | 2017-03-08 11:51 | HHI.PR ---
Subjective Remarks Patient discharged to [facility] facility yesterday but there was no bed available. This morning she is more calm. She is answering questions appropriately but admits to persistent visual and auditory hallucinations. She is discussed with Dr. Garcia. Objective Vitals Vital Signs Date Time Temp Pulse Resp B/P (MAP) Pulse Ox O2 Delivery O2 Flow Rate FiO2 03/08/17 08:00 96.0 75 18 165/94 (117) 99 03/08/17 04:00 96.2 80 15 163/83 (109) 99 03/08/17 00:00 96.4 81 16 136/66 (89) 97 03/07/17 20:47 63 03/07/17 19:00 96.4 80 17 144/76 (98) 98 03/07/17 16:00 97.0 78 18 132/77 (95) 98 03/07/17 12:00 99.3 98 18 147/66 (93) 98 I/O 03/07/17 03/07/17 03/07/17 03/08/17 03/08/17 03/08/17 07:00 15:00 23:00 07:00 15:00 23:00 Intake Total 1060 ml 240 ml 2092 ml 1450 ml Balance 1060 ml 240 ml 2092 ml 1450 ml Intake Oral 60 ml 240 ml 480 ml 200 ml IV Total 1000 ml 1612 ml 1250 ml # Voids 4 2 2 3 # Bowel Movements 0 0 0 0 Result Diagram: 03/06/17 0759 03/07/17 1513 Objective Remarks GENERAL: This is a well-nourished, well-developed patient, in no apparent distress. CARDIOVASCULAR: Normal rate and regular rhythm without murmurs, gallops, or rubs. RESPIRATORY: Breath sounds equal and clear to auscultation bilaterally. GASTROINTESTINAL: Abdomen soft, non-tender, non-distended. Normal active bowel sounds MUSCULOSKELETAL: Right lower extremity postoperative splint NEURO: Speech is clear. Visual and auditory hallucinations. PSYCH: Calm, appeared to be responding to internal stimuli Procedures Right tibia intramedullary joseph fixation A/P Problem List: (1) Fracture of right tibia and fibula ICD Code: S82.201A - Unspecified fracture of shaft of right tibia, initial encounter for closed fracture; S82.401A - Unspecified fracture of shaft of right fibula, initial encounter for closed fracture (2) Rhabdomyolysis ICD Code: M62.82 - Rhabdomyolysis Assessment and Plan 67-year-old female admitted secondary to right tib-fib fracture status post fall. Patient underwent surgical repair. However she became delirious probably due to withdrawal from Fioricet. Psychiatry has been on the case. Patient is discharged to the med psych unit to continue treatment for Fioricet withdrawals. Right tib-fib fracture Spiral fracture Status post right tibia intramedullary joseph fixation. Continue as needed pain medications. Patient will try to use [place] as needed Routine postoperative care per orthopedics Patient may need alf facility at discharge S/P fall in the Hospital after getting out of bed unassisted./Broken nose - Patient seen by ENT. Recommends outpatient follow up Delirium, likely related to medical condition. Fioricet withdrawal is probably contributing based on discussion with the psychiatrist. - Per psychiatry recommendations, Ativan 2 mg every 4 hours. Taper as tolerated. -Improving. Continue trazodone at night -Continue Seroquel low dose 25 mg BID. Elevated CK: Expected after fall and orthopedics surgery. Renal function stable. Hyponatremia: -Resolved with IV fluid. Hypokalemia: - Replace and monitor. Nicotine Abuse Patient declines NicoDerm DVT Prophylaxis Lovenox Discharge Planning Transfer to med psych today. Discussed with psychiatrist, Dr. Starr. Patient appear to have enough capacity to sign voluntary. Colton Clark MD Mar 08, 2017 11:51
[2017-03-08 12:00] VITALS: BP 118/70; PULSE 103; RESP 18; TEMP 99; O2SAT 98
[2017-03-08] MEDS: oxyCODONE/ACETAMINOPHEN 5 MG/325 MG TAB PO PRN ×2 (12:25→17:49)
[2017-03-08 16:00] VITALS: BP 156/77; PULSE 91; RESP 18; TEMP 98.9; O2SAT 96
== END 2017-03-08 17:57 | DRG 493 ==
LOC: NEPE 23:02 → NEDA 03-01 04:52 → N06B 03-01 06:32 → N06A 03-04 16:33
PROVIDERS: ADMIT Hospitalist; ATTEND Hospitalist
PROC: 0QHG36Z Insertion of Intramedullary Internal Fixation Device into Right Tibia, Percutaneous Approach (ICD-10-PCS; principal; 2017-03-02 09:00)
DX: S82.201A Unspecified fracture of shaft of right tibia, initial encounter for closed fracture (principal); M62.82 Rhabdomyolysis; E87.1 Hypo-osmolality and hyponatremia; S82.401A Unspecified fracture of shaft of right fibula, initial encounter for closed fracture; M19.90 Unspecified osteoarthritis, unspecified site; G43.909 Migraine, unspecified, not intractable, without status migrainosus; Z72.0 Tobacco use; Y92.009 Unspecified place in unspecified non-institutional (private) residence as the place of occurrence of the external cause; W01.0XXA Fall on same level from slipping, tripping and stumbling without subsequent striking against object, initial encounter; Z85.3 Personal history of malignant neoplasm of breast; Z80.3 Family history of malignant neoplasm of breast; Z90.13 Acquired absence of bilateral breasts and nipples; S02.2XXA Fracture of nasal bones, initial encounter for closed fracture; R11.2 Nausea with vomiting, unspecified; Y92.239 Unspecified place in hospital as the place of occurrence of the external cause; W18.30XA Fall on same level, unspecified, initial encounter; E86.1 Hypovolemia; Z78.1 Physical restraint status; E87.6 Hypokalemia; F29 Unspecified psychosis not due to a substance or known physiological condition
CPT/HCPCS: 70450; 70486; 72125; 73590; 73620; 76000; 80048; 80053; 80307; 81001; 82550; 82552; 84484; 85025; 85027; 85610; 85730; 93005; 94150; J0131; J0690; J1170; J1200; J1580; J1650; J1885; J2060; J2175; J2405; J2765; J3370; J3480; J7030; L1830; Q0169

== ENCOUNTER 2017-03-08 13:40 | Inpatient (IN) | payer OTHER, MEDICARE ==
[~2017-03-08 13:40] MED LIST changes: -FIORIC PO; +IBUP800T23 PO; +TRAZ100T6 PO; -ZOFR4TAB3 SL
[2017-03-08] MEDS ORDERED: FLUMAZENIL 0.5 MG/5 ML VIAL IV PUSH PRN (19:15)
[2017-03-08] MEDS ORDERED: LORazepam 1 MG TAB PO PRN (19:15)
[2017-03-08] MEDS ORDERED: ACETAMINOPHEN 325 MG TAB PO PRN (19:15)
[2017-03-08] MEDS ORDERED: LORazepam 2 MG/ML VIAL IV PUSH PRN ×4 (19:15)
[2017-03-08] MEDS ORDERED: MAGNESIUM HYDROXIDE SUSP 30 ML CUP PO PRN (19:15)
[2017-03-08] MEDS ORDERED: LORazepam 2 MG TAB PO PRN (19:15)
[2017-03-08] MEDS ORDERED: ALUMINUM/MAGNESIUM/SIMETH 30 ML CUP PO PRN (19:15)
[2017-03-08 19:45] VITALS: BP 148/65; PULSE 80; RESP 17; TEMP 98.1; O2SAT 96
[2017-03-09] MEDS: oxyCODONE/ACETAMINOPHEN 5 MG/325 MG TAB PO PRN ×5 (00:47→21:36)
[2017-03-09 05:51] VITALS: BP 159/70; PULSE 76; RESP 16; TEMP 97.4; O2SAT 97
--- NOTE | 2017-03-09 08:14 | HHI.HP ---
Provisional Diagnosis Admission Date Mar 08, 2017 at 13:40 [place]. 1. Unspecified adjustment disorder 2. Resolving barbiturate withdrawal delirium [place]. Deferred Certification of Person's Competence To Provide Express and Informed Consent I have personally examined Mel Serna , a person being served at [facility] on, Mar 09, 2017 08:14. Express and informed consent means consent voluntarily given in writing, by a competent person, after sufficient explanation and disclosure of the subject matter involved to enable the person to make a knowing and willful decision without any element of force, fraud, deceit, duress, or other form of constraint or coercion. This person is 18 years of age or older, is not now known to be incompetent to consent to treatment with a guardian advocate, and does not have a health care surrogate or proxy currently making medical treatment decisions. I have found this person to be one of the following: [] Competent to provide express and informed consent, as defined above, for voluntary admission to this facility and is competent to provide express and informed consent for treatment. He/she has the consistent capacity to make well reasoned, willful, and knowing decisions concerning his or her medical or mental health treatment. The person fully and consistently understands the purpose of the admission for examination/placement and is fully capable of personally exercising all rights assured [place] [] Incompetent to provide express and informed consent to voluntary admission, and this is incompetent to provide express and informed consent to treatment. The person must be transferred to involuntary status and a petition for a guardian advocate filed with the Circuit Court. [] Refusing to provide express and informed consent to voluntary admission but is competent to provide express and informed consent for treatment. The person must be discharged or transferred to involuntary status. Form shall be completed within 24 hours of a person's arrival at the receiving facility and filed in the clinical record of each person: 1. Admitted on a voluntary basis 2. Permitted to provide express and informed consent to his/her own treatment 3. Allowed to transfer from involuntary to voluntary status 4. Prior to permitting a person to consent to his or her own treatment after having been previously found incompetent to consent to treatment. History of Present Illness Capacity: Has Capacity HPI Ms. Serna is a 67-year-old female with no reported past psychiatric history who presented initially to the emergency department following a fall, found to have a right tib-fib fracture. She underwent surgical repair and was admitted to the medical unit when she became acutely delirious, and this was thought to be related to barbiturate withdrawal as the patient has a history of heavy Fioricet use. Patient was seen in consultation by Dr. Garcia who managed this issue and subsequently recommended admission to the inpatient psychiatric unit. Reviewing the electronic medical record, I see no prior psychiatric contact within our system. Patient seen and examined with nurse. Chart reviewed. Case discussed with nursing staff. When I admitted the patient overnight, I noted that the patient had not been receiving much of her scheduled Ativan at all on the medical floor area and I therefore elected to continue only with a CIWA scale with Ativan. Patient did not score significantly on the CIWA scale overnight and her most recent assessment was 0. On my examination today, the patient seems clear thinking and appropriate. She does report that her concentration is subjectively somewhat poor. She describes her mood as "great." She denies any hopelessness, worthlessness or associated depressive symptoms. Denies any audiovisual hallucinations. I can elicit no delusional material. She does not describe any current or prior hypomanic or manic symptoms. She denies any suicidal or homicidal ideation, intent or plan on direct questioning. The remainder of psychiatric ROS is negative. Besides some pain in the affected leg , no reported physical complaints at this time. Past psychiatric history: The patient denies a history of psychiatric diagnosis. She denies a history of psychiatric admission or suicide attempts. She denies a history of outpatient psychiatric treatment. Family history: The patient denies any family history of mental health issues. Chemical dependency history: The patient admits to overuse of Fioricet. She says that this was both given to her by prescription and also by friends. She says that she would use about 8 tablets a day. She reports that she originally took the Fioricet for migraine headache but then found out that it helped with pain following her bilateral mastectomy and worked better than the codeine that she was being given otherwise for this issue. She denies any other substance use. Social history: The patient lives with a roommate. She does seem a little bit confused still, for example saying that she is single with no children initially and then alluding to a daughter later in the conversation. She has 2 years of college. 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 She denies any history. Denies any legal history. Denies any access to guns or firearms. Denies any yazidi or spiritual beliefs. Mental status testing: Registration is 3 out of 3. Recall is one out of 3 at 3 minutes. She is oriented to person, month/year and location. She is able to spell the word world forwards but when asked to spell it backwards thinks that it is a palindrome. She is unable to perform serial sevens further than one iteration. She is able to name 2 items and repeat a phrase. Review of Systems Except as stated in HPI: all other systems reviewed are Neg Past Psych History Psychological trauma history Patient denies any history of physical, verbal or sexual abuse. Violence risk - others (6 mos) Lower imminent risk. Denies homicidal ideation. No known history of violence. Denies access to guns/ firearms. Violence risk - self (6 mos) Suspect lower imminent risk. Denies suicidal ideation. Main risk would come from confusion related to resolving delirium. Substance Abuse History Drugs/Alcohol past 12 months See above Past Family Social History Coded Allergies: aspirin (Unverified Adverse Reaction, Severe, gi bleed, 01/02/17) morphine (Unverified Adverse Reaction, Intermediate, hypotension , 01/02/17 ) Past Medical History See electronic medical record Reported Medications Ibuprofen (Ibuprofen) 800 Mg Tab, 800 MG PO TID Y for PAIN SCALE 1 TO 10, TAB 0 Refills 03/01/17 Gabapentin (Gabapentin) 100 Mg Cap, 100 MG PO BID, #60 CAP 0 Refills 03/01/17 Trazodone (Trazodone) 100 Mg Tablet, 100 MG PO HS for Control Depression, #30 TAB 0 Refills 03/01/17 Citalopram Hydrobromide (Citalopram Hydrobromide) 20 Mg Tab, 10 MG PO DAILY, TAB 05/29/13 Discontinued Reported Medications Ondansetron Odt (Zofran Odt) 4 Mg Tab, 4 MG SL Q8HR Y for Nausea/Vomiting, #30 TAB 0 Refills 03/01/17 Citalopram (Citalopram) 40 Mg Tab, 40 MG PO DAILY for Control Depression, #30 TAB 0 Refills 03/01/17 Gabapentin (Gabapentin) 100 Mg Cap, PO HS, CAP 02/19/15 Ondansetron (Zofran ODT) 4 Mg Tab, 4 MG SL Q6H Y for NAUSEA OR VOMITING, TAB FOR NAUSEA/VOMITING 02/19/15 Acetamin/Butalbital/Caffeine (Fioricet Tab) 1 Tab Tab, 1 TAB PO Q4H Y for HEADACHE, TAB 05/29/13 Discontinued Scripts Ondansetron (Zofran ODT) 4 Mg Tab, 4 MG SL Q6H Y for NAUSEA OR VOMITING, #4 TAB FOR NAUSEA/VOMITING Prov:Arsen Chandra MD 09/28/15 Acetamin/Butalbital/Caffeine (Fioricet Tab) 1 Tab, 1 TAB PO Q6H Y for HEADACHE, #20 TAB Prov:Arsen Chandra MD 09/28/15 Current Medications Medications (Trade) Dose Ordered Sig/[place] Route Start Time Stop Time Status Last Admin (Tylenol) 650 mg Q4H PRN PO 03/08/17 19:15 (Milk Of Magnesia Liq) 30 ml DAILY PRN PO 03/08/17 19:15 (Mag-Al Plus Susp Liq) 30 ml Q6H PRN PO 03/08/17 19:15 (Habitrol 21 Mg Patch.24 Hr) 1 patch DAILY T-DERMAL 03/09/17 09:00 (Romazicon Inj) 0.2 mg Q1M PRN IV PUSH 03/08/17 19:15 (Ativan) 1 mg Q4H PRN PO 03/08/17 19:15 (Ativan Inj) 1 mg Q4H PRN IV PUSH 03/08/17 19:15 (Ativan) 2 mg Q2H PRN PO 03/08/17 19:15 (Ativan Inj) 2 mg Q2H PRN IV PUSH 03/08/17 19:15 (Ativan Inj) 2 mg Q1H PRN IV PUSH 03/08/17 19:15 (Ativan Inj) 2 mg Q15M PRN IV PUSH 03/08/17 19:15 Miscellaneous Information 1 DAILY T-DERMAL 03/09/17 09:00 (Percocet 5-325 Mg) 1 tab Q4H PRN PO 03/09/17 00:30 03/09/17 00:47 Family Psych History See above Social History See above Patient's Strengths (min. 2) In a monitored setting. Verbally fluent. Physical Exam Physical examination completed by hospitalist prior to transfer to the medical psychiatric unit. On my examination today, the patient appears to be in no acute physical distress. No motor abnormalities noted. In particular no hand tremor, no diaphoresis, no mydriasis, no tongue fasciculations, no hyperreflexia , no other signs of GABAergic withdrawal. No other motoric abnormalities noted. Labs and vitals reviewed: Vital Signs Vital Signs Date Time Temp Pulse Resp B/P (MAP) Pulse Ox O2 Delivery O2 Flow Rate FiO2 03/09/17 05:51 97.4 76 16 159/70 (99) 97 Lab Results Item Value Date Time White Blood Count 7.5 TH/MM3 03/06/17 0759 Hemoglobin 10.3 GM/DL L 03/06/17 0759 Platelet Count 299 TH/MM3 03/06/17 0759 Sodium Level 142 MEQ/L 03/07/17 1513 Potassium Level 3.6 MEQ/L 03/07/17 1513 Chloride Level 109 MEQ/L H 03/07/17 1513 Carbon Dioxide Level 27.1 MEQ/L 03/07/17 1513 Blood Urea Nitrogen 6 MG/DL L 03/07/17 1513 Creatinine 0.54 MG/DL 03/07/17 1513 Random Glucose 135 MG/DL H 03/07/17 1513 Total Creatine Kinase 1546 U/L H 03/06/17 0759 Aspartate Amino Transf (AST/SGOT) 41 U/L H 03/07/17 1513 Alanine Aminotransferase (ALT/SGPT) 53 U/L 03/07/17 1513 Alkaline Phosphatase 103 U/L 03/07/17 1513 Labs reviewed. Fairly stable anemia noted. Elevated CK noted. Urinalysis results reviewed. Head CT impressions reviewed. Mental Status Examination Appearance: Other (in hospital gown. Fairly well groomed.) Consciousness: Alert Orientation: Person, Place, Date/Time Motor Activity: Other (motor exam as above) Speech: Unremarkable Language: Adequate Fund of Knowledge: Adequate Attention and Concentration: Easily Distracted Memory: Impaired (see above) Mood: Good Affect: Appropriate (full and reactive) Thought Process & Associations: Other (generally fairly linear) Hallucination Type: None Delusion Type: None Suicidal Ideation: No Suicidal Plan: No Suicidal Intention: No Homicidal Ideation: No Homicidal Plan: No Homicidal Intention: No Insight: Fair Judgment: Adequate (fair) Assessment & Plan Problem List: (1) Adjustment disorder ICD Codes: F43.20 - Adjustment disorder, unspecified (2) Barbiturate withdrawal with delirium ICD Codes: F13.231 - Sedative, hypnotic or anxiolytic dependence with withdrawal delirium Assessment & Plan 67-year-old female with psychiatric history as detailed above who is presently voluntarily admitted to the medical psychiatric unit. Patient apparently was experiencing a barbiturate withdrawal delirium on medical floor. This appears to be resolving now, although the patient does have some subjective concentration difficulties that are distressing for her, and so I will provide a diagnosis of adjustment disorder for this distress. Patient will be monitored on the medical psychiatric unit over the weekend to ensure complete resolution of her delirium and to allow for appropriate discharge planning. Admit inpatient. Voluntary status. Patient's delirium appears to be well- controlled at this point, and so I see no indication for a scheduled benzodiazepine. I will continue with the CIWA scale with Ativan as needed. Seizure and fall precautions. Patient is receiving some opiate pain medications for her postoperative pain but otherwise we will endeavor to limit opiates, anticholinergics, antihistamines, and benzodiazepines except as needed to manage withdrawal as all of these can worsen mental status. PT/OT. Consult to the hospitalist. The orthopedic surgeons signed off while the patient was on the medical floor. Check CK and CMP as well as a lipid panel and hemoglobin A1c. Vitals every shift. Counselor to see and obtain collateral. Disposition planning. Estimated length of stay: 3-5 days. Discharge Planning Pending stabilization. Discussed potential need for chemical dependency evaluation and treatment. Request HC Surrog/Guard Advoc?: No Problem Qualifiers (1) Adjustment disorder: Qualified Codes: F43.20 - Adjustment disorder, unspecified Mehdi Dockery MD Mar 09, 2017 08:14
[2017-03-09 08:59] LABS: ANION GAP 6 MEQ/L (5-15); AST (GOT) 26 U/L (15-37); BICARBONATE 28.9 MEQ/L (21.0-32.0); BLOOD UREA NITROGEN 13 MG/DL (7-18); CHLORIDE 106 MEQ/L (98-107); GLOMERULAR FILTRATION RATE 103 ML/MIN (>89); SODIUM (NA) 141 MEQ/L (136-145)
[2017-03-09] MEDS: REMOVE OLD PATCH T-DERMAL SCH (09:00)
[2017-03-09] MEDS: NICOTINE 21 MG/24 HR PATCH T-DERMAL SCH (09:00)
[2017-03-09 09:03] LABS: ALKALINE PHOSPHATASE 126 U/L (45-117); ALT (GPT) 47 U/L (10-53); HDL CHOLESTEROL 48.5 MG/DL (40.0-60.0); LDL CHOLESTEROL 124 MG/DL (0-99); TOTAL BILIRUBIN ADULT 0.6 MG/DL (0.2-1.0)
[2017-03-09 09:06] LABS: CREATINE KINASE 91 U/L (26-192)
[2017-03-09 11:19] LABS: HEMOGLOBIN A1a 1.1 %; HEMOGLOBIN A1b 1.6 %; HEMOGLOBIN Ao 85.5 %; HEMOGLOBIN LA1C 2.4 %
--- NOTE | 2017-03-09 11:26 | PD.CONS ---
HPI Service [facility] Hospitalists Consult Requested By Psychiatry Reason for Consult Medical management Primary Care Physician No Primary Care Physician Diagnoses: History of Present Illness 67 year-old female was initially admitted to [facility] for evaluation of the right tibia/fibular fracture status post mechanical fall and underwent repair. However while in the medical [place], patient became delirious for which psychiatry was consulted. It was felt that this was secondary to barbiturate withdrawal. Patient's condition improved very slowly. She was discharged to [facility] yesterday 03/08/17.[facility] has been consulted for medical management. During my exam, patient appear alert and oriented 3, however when asked about the previous president she name Moris Cedeño. Otherwise she denies any chest pain or shortness of breath. Review of Systems Except as stated in HPI: all other systems reviewed are Neg Past Family Social History Allergies: Coded Allergies: aspirin (Unverified Adverse Reaction, Severe, gi bleed, 01/02/17) morphine (Unverified Adverse Reaction, Intermediate, hypotension , 01/02/17 ) Past Medical History Breast cancer Osteoarthritis Headache Ovarian cysts History of right humerus fracture Past Surgical History Bilateral mastectomy Hysterectomy Bladder surgery Tonsillectomy Reported Medications see EMR Family History Breast cancer in mother Parkinson's disease in father Social History 1ppd smoking habit No Alcohol abuse No illicit drug use Physical Exam Vital Signs Vital Signs Date Time Temp Pulse Resp B/P (MAP) Pulse Ox O2 Delivery O2 Flow Rate FiO2 03/09/17 05:51 97.4 76 16 159/70 (99) 97 03/08/17 19:45 98.1 80 17 148/65 (92) 96 Physical Exam GENERAL: This is a well-nourished, well-developed patient, in no apparent distress. SKIN: No rashes, ecchymoses or lesions. Cool and dry. HEAD: Atraumatic. Normocephalic. No temporal or scalp tenderness. EYES: Pupils equal round and reactive. Extraocular motions intact. No scleral icterus. No injection or drainage. ENT: Nose without bleeding, purulent drainage or septal hematoma. Throat without erythema, tonsillar hypertrophy or exudate. Uvula midline. Airway patent. NECK: Trachea midline. No JVD or lymphadenopathy. Supple, nontender, no meningeal signs. CARDIOVASCULAR: Regular rate and rhythm without murmurs, gallops, or rubs. RESPIRATORY: Clear to auscultation. Breath sounds equal bilaterally. No wheezes , rales, or rhonchi. GASTROINTESTINAL: Abdomen soft, non-tender, nondistended. No hepato-splenomegaly , or palpable masses. No guarding. MUSCULOSKELETAL: Extremities without clubbing, cyanosis, or edema. Bandage over incision sites NEUROLOGICAL: Awake and alert. Cranial nerves II through XII intact. Motor and sensory grossly within normal limits. Five out of 5 muscle strength in all muscle groups. Normal speech. Laboratory Laboratory Tests Test 03/09/17 08:16 Blood Urea Nitrogen 13 Creatinine 0.58 Random Glucose 102 Total Protein 6.3 Albumin 3.1 Calcium Level 8.5 Alkaline Phosphatase 126 Aspartate Amino Transf (AST/SGOT) 26 Alanine Aminotransferase (ALT/SGPT) 47 Total Bilirubin 0.6 Sodium Level 141 Potassium Level 4.0 Chloride Level 106 Carbon Dioxide Level 28.9 Anion Gap 6 Estimat Glomerular Filtration Rate 103 Total Creatine Kinase 91 Triglycerides Level 123 Cholesterol Level 197 LDL Cholesterol 124 HDL Cholesterol 48.5 Cholesterol/HDL Ratio 4.06 Result Diagram: 03/09/17 0816 Assessment and Plan Assessment and Plan 67 year-old female with Barbiturate withdrawal with delirium Adjustment disorder Management per psychiatry Clinically improving Right tibia/fibular fracture Status post repair PT to treat and eval Pain management accordingly Benign labile hypertension Start low-dose lisinopril 10 mg daily Nicotine dependence Counseled to quit Continue with nicotine patch DVT prophylaxis: Encourage ambulation Thank you for this consultation Discussed Condition With Patient, Bernardo Schofield MD Mar 09, 2017 11:26
[2017-03-09] MEDS ORDERED: cloNIDine HCL 0.1 MG TAB PO PRN (11:30)
[2017-03-09 18:00] VITALS: BP 125/60; PULSE 78; RESP 16; TEMP 98.8; O2SAT 97
[2017-03-10] MEDS: oxyCODONE/ACETAMINOPHEN 5 MG/325 MG TAB PO PRN ×5 (02:08→21:23)
[2017-03-10 04:00] VITALS: BP 141/73; PULSE 20; RESP 20; TEMP 97.4; O2SAT 97
[2017-03-10] MEDS: REMOVE OLD PATCH T-DERMAL SCH (07:22)
[2017-03-10] MEDS: NICOTINE 21 MG/24 HR PATCH T-DERMAL SCH (07:23)
--- NOTE | 2017-03-10 07:53 | HHI.PYPN ---
Subjective Remarks Patient seen and examined with nurse. Chart reviewed. CIWA scale 1 overnight. Case discussed with nursing staff. No behavioral issues overnight. Nurse does note that patient has been asking for opiate pain medications around-the- clock. On my examination today, the patient is clear thinking. Reports that she slept well overnight. No evidence of ongoing delirium. She is oriented 3 and attention/concentration testing is intact. Denies audiovisual hallucinations. Besides the leg pain, no physical complaints. No side effects from medications. Review of Systems Except as stated in HPI: all other systems reviewed are Neg Mental Status Examination Appearance: Appropriate Consciousness: Alert Orientation: Person, Place, Date/Time Motor Activity: Other (no motor abnormalities noted. No signs of GABAergic withdrawal noted.) Speech: Unremarkable Language: Adequate Fund of Knowledge: Adequate Attention and Concentration: Easily Distracted Memory: Unremarkable (on clinical exam) Mood: Appropriate Affect: Appropriate Thought Process & Associations: Logical, Linear Hallucination Type: None Delusion Type: None Suicidal Ideation: No Suicidal Plan: No Suicidal Intention: No Homicidal Ideation: No Homicidal Plan: No Homicidal Intention: No Insight: Fair Judgment: Adequate (fair) Results Labs Test 03/09/17 08:16 Blood Urea Nitrogen 13 MG/DL Creatinine 0.58 MG/DL Random Glucose 102 MG/DL Total Protein 6.3 GM/DL Albumin 3.1 GM/DL Calcium Level 8.5 MG/DL Alkaline Phosphatase 126 U/L Aspartate Amino Transf (AST/SGOT) 26 U/L Alanine Aminotransferase (ALT/SGPT) 47 U/L Total Bilirubin 0.6 MG/DL Sodium Level 141 MEQ/L Potassium Level 4.0 MEQ/L Chloride Level 106 MEQ/L Carbon Dioxide Level 28.9 MEQ/L Anion Gap 6 MEQ/L Estimat Glomerular Filtration Rate 103 ML/MIN Hemoglobin A1c 5.2 % Total Creatine Kinase 91 U/L Triglycerides Level 123 MG/DL Cholesterol Level 197 MG/DL LDL Cholesterol 124 MG/DL HDL Cholesterol 48.5 MG/DL Cholesterol/HDL Ratio 4.06 RATIO Labs reviewed. Mild alkaline phosphatase elevation noted. Vitals/IOs Vital Signs Date Time Temp Pulse Resp B/P (MAP) Pulse Ox O2 Delivery O2 Flow Rate FiO2 03/10/17 04:00 97.4 20 20 141/73 (95) 97 Pulse entered in error. Real pulse rate is 92/m. 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 I will continue CIWA scale with Ativan for 1 more day, but after this it can likely be discontinued unless the patient experiences worsening of her withdrawal. Cautioned patient about overuse of opiate pain medications. Continue to monitor on the inpatient unit. Hospitalist input noted and appreciated. Continue other medications and care as ordered. Justification for Cont. Inpt. Risk for decompensation Discharge Planning Per week day treatment team Request HC Surrog/Guard Advoc?: No Problem Qualifiers (1) Adjustment disorder: Qualified Codes: F43.20 - Adjustment disorder, unspecified Mehdi Dockery MD Mar 10, 2017 07:52
[2017-03-10 08:08] VITALS: PULSE 92; RESP 20
[2017-03-10] MEDS: LISINOPRIL 10 MG TAB PO SCH (08:19)
--- NOTE | 2017-03-10 10:03 | HHI.PR ---
Subjective Remarks Patient seen and examined Alert and oriented 3 No acute event overnight Great appetite. Objective Vitals Vital Signs Date Time Temp Pulse Resp B/P (MAP) Pulse Ox O2 Delivery O2 Flow Rate FiO2 03/10/17 08:08 92 20 03/10/17 04:00 97.4 20 20 141/73 (95) 97 03/10/17 03:08 20 03/09/17 18:00 98.8 78 16 125/60 (81) 97 I/O 03/09/17 03/09/17 03/09/17 03/10/17 03/10/17 03/10/17 07:00 15:00 23:00 07:00 15:00 23:00 Intake Total 120 ml 120 ml 240 ml Output Total 500 ml Balance 120 ml 120 ml -260 ml Intake Oral 120 ml 120 ml 240 ml Output Urine Total 500 ml # Voids 3 # Bowel Movements 0 Result Diagram: 03/09/1716 Objective Remarks GENERAL: NAD SKIN: Warm and dry. HEAD: Normocephalic. EYES: No scleral icterus. No injection or drainage. NECK: Supple, trachea midline. No JVD or lymphadenopathy. CARDIOVASCULAR: Regular rate and rhythm without murmurs, gallops, or rubs. RESPIRATORY: Breath sounds equal bilaterally. No accessory muscle use. GASTROINTESTINAL: Abdomen soft, non-tender, nondistended. MUSCULOSKELETAL: No cyanosis, or edema. BACK: Nontender without obvious deformity. No CVA tenderness. A/P Assessment and Plan 67 year-old female with Barbiturate withdrawal with delirium-resolved Adjustment disorder Management per psychiatry Clinically improved Right tibia/fibular fracture Status post repair PT to treat and eval Pain management accordingly Benign labile hypertension Continue low-dose lisinopril 10 mg daily Nicotine dependence Counseled to quit Continue with nicotine patch DVT prophylaxis: Encourage ambulation patient is medically stable for discharge likely next 24 hours Bernardo Marshall MD Mar 10, 2017 10:03
[2017-03-11 06:12] VITALS: BP 148/65; PULSE 80; RESP 16; TEMP 98.2; O2SAT 97
[2017-03-11] MEDS: REMOVE OLD PATCH T-DERMAL SCH (09:00)
[2017-03-11] MEDS: NICOTINE 21 MG/24 HR PATCH T-DERMAL SCH (09:00)
[2017-03-11 10:00] VITALS: BP 130/61; PULSE 95
[2017-03-11] MEDS: oxyCODONE/ACETAMINOPHEN 5 MG/325 MG TAB PO PRN ×4 (10:02→22:53)
[2017-03-11] MEDS: LISINOPRIL 10 MG TAB PO SCH (10:04)
--- NOTE | 2017-03-11 14:38 | HHI.PYPN ---
Subjective Remarks Patient is a 67-year-old woman, domiciled alone, no past psychiatric history other than barbiturate dependence, no previous psychiatric hospitalization or suicide attempts was admitted to the inpatient medical/ psychiatry unit for further evaluation and management after having been noted to have withdrawal delirium on the medical floor. Patient seen for follow, chart review. Patient found sitting in hospital bed, cooperative interview today. Patient alert and oriented 3. Patient states that her weekend was "a little bit better" but was still noted to be confused and is trying to understand events that had transpired since her admission. Patient states that she had been visited by her daughters from out of town over the weekend for support which she was happy about. Patient reports having had some previous treatment with depression in the past but was a longer taking the medication. Patient denies any mood symptoms at this time denies any perceptual disturbances but appears to be improving as far as confusion with recent events. Review of Systems Except as stated in HPI: all other systems reviewed are Neg Mental Status Examination Appearance: Appropriate Consciousness: Alert Orientation: Person, Place, Date/Time Motor Activity: Other (no motor abnormalities noted. Gait unable to be assessed this patient is lying in hospital bed.) Speech: Unremarkable Language: Adequate Fund of Knowledge: Adequate Attention and Concentration: Easily Distracted Memory: Impaired (surrounding recent events) Mood: Appropriate Affect: Appropriate Thought Process & Associations: Intact, Logical, Linear Thought Content: Appropriate Hallucination Type: None Delusion Type: None Suicidal Ideation: No Suicidal Plan: No Suicidal Intention: No Homicidal Ideation: No Homicidal Plan: No Homicidal Intention: No Insight: Fair Judgment: Adequate (fair) Results Vitals/IOs Vital Signs Date Time Temp Pulse Resp B/P (MAP) Pulse Ox O2 Delivery O2 Flow Rate FiO2 03/11/17 11:10 18 03/11/17 10:00 95 130/61 (84) 03/11/17 06:12 98.2 97 Intake and Output 03/11/17 03/11/17 03/12/17 08:00 16:00 00:00 Intake Total 0 ml 660 ml Balance 0 ml 660 ml Assessment & Plan Problem List: (1) Adjustment disorder ICD Codes: F43.20 - Adjustment disorder, unspecified (2) Barbiturate withdrawal with delirium ICD Codes: F13.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 Patient denies any personal services at this time was not noted to be agitated or having her dyscontrol today. Due to the nature of delirium waxing and waning patient will continue to be monitored to assess consistency with improvement from delirium. Patient to continue on withdrawal precautions.." As per primary medical team. Continue current treatment. She stated that he was patient will likely require rehabilitation detention facility upon discharge. Justification for Cont. Inpt. At risk for further decompensation if at lower level of care Discharge Planning Patient likely will require discharged to a rehabilitation facility such as detention facility. Request HC Surrog/Guard Advoc?: No Problem Qualifiers (1) Adjustment disorder: Qualified Codes: F43.20 - Adjustment disorder, unspecified Bernardo Birmingham MD Mar 11, 2017 14:38
[2017-03-11 18:56] VITALS: BP 143/64; PULSE 82; RESP 16; TEMP 98.5; O2SAT 94
[2017-03-12 06:09] VITALS: BP 144/88; PULSE 82; RESP 15; TEMP 98.6; O2SAT 95
[2017-03-12 08:07] VITALS: BP 126/60; PULSE 75
[2017-03-12] MEDS: oxyCODONE/ACETAMINOPHEN 5 MG/325 MG TAB PO PRN ×2 (08:07→12:41)
[2017-03-12] MEDS: NICOTINE 21 MG/24 HR PATCH T-DERMAL SCH (08:07)
[2017-03-12] MEDS: REMOVE OLD PATCH T-DERMAL SCH (08:07)
[2017-03-12] MEDS: LISINOPRIL 10 MG TAB PO SCH (08:08)
[2017-03-12 09:40] VITALS: RESP 18
--- NOTE | 2017-03-12 12:58 | PD.TTN ---
Patient Problems 1. Discharge planning 2. Medication compliance 3. Knowledge deficit 4. Lack of coping skills Progress Toward Goals Provider Present: Dr. Niranjan Birmingham Provider Input: Patient is stable to be discharge to a health and Rehab, scripts will be written Psychiatric Counselors Present: [facility] Spec/RT/OT/LANGE Present: Ynug Pena OT Occupational Therapist Input: Patient has been limited due to fracture to participate with group activities, therefore one on one has been offerred Discharge Plan Patient is being discharged to [facility] for short term Rehab Francia Avery KAREN Mar 12, 2017 12:58
[2017-03-12] MEDS ORDERED: LISI10TA3 PO (15:10)
--- NOTE | 2017-03-12 15:24 | HHI.DS ---
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 Serna is a 67-year-old female with no reported past psychiatric history who presented initially to the emergency department following a fall, found to have a right tib-fib fracture. She underwent surgical repair and was admitted to the medical unit when she became acutely delirious, and this was thought to be related to barbiturate withdrawal as the patient has a history of heavy Fioricet use. Patient was seen in consultation by Dr. Garcia who managed this issue and subsequently recommended admission to the inpatient psychiatric unit. Reviewing the electronic medical record, I see no prior psychiatric contact within our system. Patient seen and examined with nurse. Chart reviewed. Case discussed with nursing staff. When I admitted the patient overnight, I noted that the patient had not been receiving much of her scheduled Ativan at all on the medical floor area and I therefore elected to continue only with a CIWA scale with Ativan. Patient did not score significantly on the CIWA scale overnight and her most recent assessment was 0. On my examination today, the patient seems clear thinking and appropriate. She does report that her concentration is subjectively somewhat poor. She describes her mood as "great." She denies any hopelessness, worthlessness or associated depressive symptoms. Denies any audiovisual hallucinations. I can elicit no delusional material. She does not describe any current or prior hypomanic or manic symptoms. She denies any suicidal or homicidal ideation, intent or plan on direct questioning. The remainder of psychiatric ROS is negative. Besides some pain in the affected leg , no reported physical complaints at this time. Past psychiatric history: The patient denies a history of psychiatric diagnosis. She denies a history of psychiatric admission or suicide attempts. She denies a history of outpatient psychiatric treatment. Family history: The patient denies any family history of mental health issues. Chemical dependency history: The patient admits to overuse of Fioricet. She says that this was both given to her by prescription and also by friends. She says that she would use about 8 tablets a day. She reports that she originally took the Fioricet for migraine headache but then found out that it helped with pain following her bilateral mastectomy and worked better than the codeine that she was being given otherwise for this issue. She denies any other substance use. Social history: The patient lives with a roommate. She does seem a little bit confused still, for example saying that she is single with no children initially and then alluding to a daughter later in the conversation. She has 2 years of college. 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 She denies any history. Denies any legal history. Denies any access to guns or firearms. Denies any lutheran or spiritual beliefs. Mental status testing: Registration is 3 out of 3. Recall is one out of 3 at 3 minutes. She is oriented to person, month/year and location. She is able to spell the word world forwards but when asked to spell it backwards thinks that it is a palindrome. She is unable to perform serial sevens further than one iteration. She is able to name 2 items and repeat a phrase. Tobacco Use In Past 30 Days: No Tobacco Past 30 Days Alcohol Use: Never Hospital Course Patient is a 67-year-old woman, domiciled alone, no past psychiatric history other than barbiturate dependence, no previous psychiatric hospitalization or suicide attempts was admitted to the inpatient medical/ psychiatry unit for further evaluation and management after having been noted to have withdrawal delirium on the medical floor during treatment for right tib- fib fracture. s/p surgical repair. Patient during hospitalization was noted to have improvement of likely barbiturate withdrawal with delirium. She was noted to have improvement of concentration, orientation and cessation of any perceptual disturbances. Patient continued to have improvement of mood, no longer noted with confusion or disorientation and was cooperative and pleasant with staff. Upon discharge patient stated feeling motivated to continue with physical rehabilitation program. She agrees to continue treatment and attend outpatient follow up appointments for continuity of care. Patient denies SI, HI , AVH or delusions. Supportive psychotherapy provided. Patient advised to return to ED or call 911 in case of emergency. Patient agrees with plan. Results Blood Pressure 126 / 60 Vital Signs Date Time Temp Pulse Resp B/P (MAP) Pulse Ox O2 Delivery O2 Flow Rate FiO2 03/12/17 09:40 18 03/12/17 08:07 75 126/60 (82) 03/12/17 06:09 98.6 95 Laboratory Results Test 03/09/17 08:16 Cholesterol Level 197 MG/DL (120-200) HDL Cholesterol 48.5 MG/DL (40.0-60.0) Hemoglobin A1c 5.2 % (4.3-6.0) LDL Cholesterol 124 MG/DL (0-99) Triglycerides Level 123 MG/DL (42-150) Summary of Procedures None Pending results at discharge: No Medications # of Antipsychotic meds at D/C: 0 Approp Antipsych med options 1 - Minimum of three failed multiple trials of monotherapy. 2 - Documented plan to taper to monotherapy due to previous use of multiple meds OR cross-taper in progress at D/C. 3 - Documentation of augmentation of Clozapine. 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 Gait unable to be assessed this patient is lying in hospital bed.) Speech: Unremarkable Language: Adequate Fund of Knowledge: Adequate Attention and Concentration: Adequate Memory: Impaired (surrounding recent events at the time of the fall prior to admission) Mood: Appropriate Affect: Appropriate Thought Process & Associations: Intact, Logical, Linear Thought Content: Appropriate Hallucination Type: None Delusion Type: None Suicidal Ideation: No Suicidal Plan: No Suicidal Intention: No Homicidal Ideation: No Homicidal Plan: No Homicidal Intention: No Insight: Fair Judgment: Adequate (fair) Discharge/Advance Care Plan Health Problems: (1) Adjustment disorder (2) Barbiturate withdrawal with delirium Goals to promote your health * To prevent worsening of your condition and complications * To maintain your health at the optimal level Directions to meet your goals Take your medications as prescribed Follow your dietary instruction Follow activity as directed Keep your appointments as scheduled Take your immunizations and boosters as scheduled If your symptoms worsen call your PCP, if no PCP go to Urgent Care Center or Emergency Room For 10/12 questions related to your inpatient stay or results of tests pending at discharge, please contact Dr. Bernardo Birmingham at Smoking is Dangerous to Your Health. Avoid second hand smoking Problem Qualifiers (1) Adjustment disorder: Qualified Codes: F43.20 - Adjustment disorder, unspecified Bernardo Birmingham MD Mar 12, 2017 15:24
== END 2017-03-12 16:00 | DRG 882 ==
LOC: H4EA 13:40
PROVIDERS: ADMIT Student in an Organized Health Care Education/Training Program; ATTEND Student in an Organized Health Care Education/Training Program
DX: F43.20 Adjustment disorder, unspecified (principal); F13.231 Sedative, hypnotic or anxiolytic dependence with withdrawal delirium; I10 Essential (primary) hypertension; F17.210 Nicotine dependence, cigarettes, uncomplicated; Z85.3 Personal history of malignant neoplasm of breast; Z90.13 Acquired absence of bilateral breasts and nipples; M19.90 Unspecified osteoarthritis, unspecified site; S82.201D Unspecified fracture of shaft of right tibia, subsequent encounter for closed fracture with routine healing
CPT/HCPCS: 80053; 80061; 82550; 83036